=== PATIENT | female | born 1950 | race African-American/Black ===

== ENCOUNTER → 2016-09-02 | Outpatient (CLI) | payer OTHER, MEDICAID ==
[2013-04-16 18:09] VITALS: BP 120/71
[2016-09-02 11:04] LABS: HEMOGLOBIN A1C 6.3 % (4.5-6.2)
[2016-09-02 11:13] LABS: BLOOD UREA NITROGEN 15 mg/dL (7-18); CHLORIDE 109 mmol/L (98-107); CREATININE 1.35 mg/dL (0.55-1.02); GLUCOSE 110 mg/dL (65-99); SODIUM 146 mmol/L (136-145); T4 (THYROXINE) 7.4 ug/dL (4.7-13.3); TSH (3RD GENERATION) 0.741 uIU/mL (0.358-3.74); eGFR BLACK RACES 50 (>60); eGFR NON BLACK RACES 42 (>60)
[2016-09-02 11:28] LABS: B-TYPE NATRIURETIC PEPTIDE 145 pg/mL (0-79)
[2016-09-02 17:57] LABS: CREATININE,URINE 322.18 mg/dL (29-226)
== END ==
LOC: LAB 10:11
PROVIDERS: ATTEND Nurse Practitioner Family
DX: I25.10 Atherosclerotic heart disease of native coronary artery without angina pectoris (principal); I11.0 Hypertensive heart disease with heart failure; N18.3 Chronic kidney disease, stage 3 (moderate); E72.11 Homocystinuria; E78.4 Other hyperlipidemia; E11.9 Type 2 diabetes mellitus without complications
CPT/HCPCS: 36415; 80048; 82043; 82607; 82746; 83036; 83880; 84436; 84443

== ENCOUNTER → 2016-09-08 | Outpatient (CLI) | payer OTHER, MEDICAID ==
[2013-04-16 18:09] VITALS: BP 120/71
== END ==
LOC: RAD 14:40
PROVIDERS: ATTEND Internal Medicine Cardiovascular Disease
DX: I48.91 Unspecified atrial fibrillation (principal)
CPT/HCPCS: 93306

== ENCOUNTER → 2016-09-10 | Outpatient (CLI) | payer OTHER, MEDICAID ==
[2013-04-16 18:09] VITALS: BP 120/71
[2016-09-10 14:22] LABS: BASOPHILS % (AUTO) 0.9 % (0.2-1.0); EOSINOPHILS # (AUTO) 0.1 x10^3/uL (0.0-0.2); EOSINOPHILS % (AUTO) 1.4 % (0.9-2.9); HEMATOCRIT 40.4 % (36.0-47.0); HEMOGLOBIN 13.3 g/dL (12.0-16.0); LYMPHOCYTES # (AUTO) 2.4 X10^3/uL (1.3-2.9); LYMPHOCYTES % (AUTO) 50.1 % (21.0-51.0); MEAN CORPUSCULAR HEMOGLOBIN 28.6 pg (27.0-34.0); MEAN CORPUSCULAR HGB CONC 32.8 g/dL (33.0-35.0); MEAN CORPUSCULAR VOLUME 87.1 fL (80.0-100.0); MEAN PLATELET VOLUME 10.1 fL (7.4-11.0); MONOCYTES # (AUTO) 0.4 x10^3/uL (0.3-0.8); MONOCYTES % (AUTO) 7.5 % (0.0-13.0); NEUTROPHILS % (AUTO) 40.1 % (42.0-75.0); PLATELET COUNT 238 X10^3/uL (150.0-450.0); RED BLOOD COUNT 4.64 X10^6/uL (3.5-5.4); WHITE BLOOD COUNT 4.9 X10^3/uL (3.6-10.0)
[2016-09-10 14:24] LABS: ALANINE AMINOTRANSFERASE 18 Units/L (12-78); ALBUMIN 3.7 g/dL (3.4-5.0); ALKALINE PHOSPHATASE 65 Units/L (46-116); ASPARTATE AMINO TRANSFERASE 15 Units/L (15-37); BLOOD UREA NITROGEN 17 mg/dL (7-18); CALCIUM 9.1 mg/dL (8.5-10.1); CARBON DIOXIDE 27.1 mmol/L (21-32); CHLORIDE 106 mmol/L (98-107); CHOL/HDL RATIO 2.3 (0.0-5.0); CHOLESTEROL 123 mg/dL (0-200); CREATININE 1.76 mg/dL (0.55-1.02); GLUCOSE 93 mg/dL (65-99); HDL CHOLESTEROL 54 mg/dL (40-60); SODIUM 144 mmol/L (136-145); TOTAL PROTEIN 8.1 g/dL (6.4-8.2); TRIGLYCERIDES 68 mg/dL (0-150); URIC ACID 8.6 mg/dL (2.6-6.0); eGFR BLACK RACES 37 (>60); eGFR NON BLACK RACES 31 (>60)
[2016-09-13 10:22] LABS: PHOSPHORUS 3.9 mg/dL (2.6-4.7)
[2016-09-13 10:24] LABS: HEMOGLOBIN A1C 6.1 % (4.5-6.2)
== END ==
LOC: LAB 13:43
PROVIDERS: ATTEND Internal Medicine
DX: I12.9 Hypertensive chronic kidney disease with stage 1 through stage 4 chronic kidney disease, or unspecified chronic kidney disease (principal); N18.3 Chronic kidney disease, stage 3 (moderate); E11.9 Type 2 diabetes mellitus without complications; I48.91 Unspecified atrial fibrillation
CPT/HCPCS: 36415; 80053; 80061; 83036; 84100; 84550; 85025

== ENCOUNTER → 2016-09-20 | Outpatient (CLI) | payer OTHER, MEDICAID ==
[2013-04-16 18:09] VITALS: BP 120/71
== END ==
LOC: RAD 08:55
PROVIDERS: ATTEND Physician Assistant
DX: I48.91 Unspecified atrial fibrillation (principal); I25.10 Atherosclerotic heart disease of native coronary artery without angina pectoris
CPT/HCPCS: 78452; 93017; A9502

== ENCOUNTER → 2016-11-23 | Outpatient (CLI) | payer OTHER, MEDICAID ==
[2013-04-16 18:09] VITALS: BP 120/71
--- NOTE | 2016-11-24 09:15 | MG ---
HISTORY: SCREENING Comparison: 09/11/2015 FINDINGS: Bilateral CC and MLO projections of the right and left breast were obtained. Scattered fibroglandul ar tissue is seen to be present. No significant architectural distortion, mass or clustered microca lcifications can be observed to suggest malignancy. No skin thickening or nipple retraction is appr eciated. No pathological lymphadenopathy can be identified. IMPRESSION: NO RADIOGRAPHIC EVIDENCE OF MALIGNANCY. ACR CATEGORY I - NEGATIVE EXAM. FOLLOW-UP EXAM 1 YEAR. Diagnostic CAD was utilized and reviewed. * 0 (ZERO) - ASSESSMENT INCOMPLETE; ADDITIONAL IMAGING IS NEEDED. * 1/ (ONE) - NEGATIVE. * 2/II (TWO) - BENIGN FINDINGS. * 3/III (THREE) - PROBABLY BENIGN FINDING; SHORT INTERVAL FOLLOW-UP SUGGESTED. * 4/IV (FOUR) - SUSPICIOUS ABNORMALITY; BIOPSY SHOULD BE CONSIDERED. * 5/V - HIGHLY SUSPICIOUS OF MALIGNANCY; BIOPSY SHOULD BE PERFORMED. A NEGATIVE X-RAY REPORT SHOULD NOT DELAY BIOPSY IF A DOMINANT OR CLINICALLY SUSPICIOUS MASS IS PRESENT; 4 TO 8 PERCENT OF CANCERS ARE NOT IDENTIFIED BY X-RAY. A NEG ATIVE REPORT MAY REINFORCE THE CLINICAL IMPRESSION. ADENOSIS AND DENSE BREASTS MAY OBSCURE AN UNDER LYING NEOPLASM. Reported By:
== END ==
LOC: RAD 10:15
PROVIDERS: ATTEND Nurse Practitioner Family
DX: Z12.31 Encounter for screening mammogram for malignant neoplasm of breast (principal)
CPT/HCPCS: 77067

== ENCOUNTER → 2016-12-30 | Outpatient (CLI) | payer OTHER, MEDICAID ==
[2013-04-16 18:09] VITALS: BP 120/71
[2016-12-30 11:56] LABS: BASOPHILS # (AUTO) 0.1 X10^3/uL (0.0-0.1); BASOPHILS % (AUTO) 1.1 % (0.2-1.0); EOSINOPHILS # (AUTO) 0.1 x10^3/uL (0.0-0.2); EOSINOPHILS % (AUTO) 1.6 % (0.9-2.9); HEMATOCRIT 37.2 % (36.0-47.0); HEMOGLOBIN 12.2 g/dL (12.0-16.0); LYMPHOCYTES # (AUTO) 2.4 X10^3/uL (1.3-2.9); LYMPHOCYTES % (AUTO) 45.7 % (21.0-51.0); MEAN CORPUSCULAR HEMOGLOBIN 28.9 pg (27.0-34.0); MEAN CORPUSCULAR HGB CONC 32.8 g/dL (33.0-35.0); MONOCYTES # (AUTO) 0.4 x10^3/uL (0.3-0.8); MONOCYTES % (AUTO) 8.1 % (0.0-13.0); NEUTROPHILS # (AUTO) 2.3 x10^3/uL (2.2-4.8); NEUTROPHILS % (AUTO) 43.5 % (42.0-75.0); PLATELET COUNT 228 X10^3/uL (150.0-450.0); RED BLOOD COUNT 4.22 X10^6/uL (3.5-5.4); RED CELL DISTRIBUTION WIDTH 13.5 % (11.6-16.5); WHITE BLOOD COUNT 5.2 X10^3/uL (3.6-10.0)
[2016-12-30 12:03] LABS: HEMOGLOBIN A1C 6.5 % (4.5-6.2)
[2016-12-30 12:12] LABS: CREATININE,URINE 151.74 mg/dL (29-226); MICROALBUMIN,URINE 3.1 mg/L
[2016-12-30 12:29] LABS: ALANINE AMINOTRANSFERASE 46 Units/L (12-78); ALBUMIN 3.5 g/dL (3.4-5.0); ALKALINE PHOSPHATASE 56 Units/L (46-116); ASPARTATE AMINO TRANSFERASE 25 Units/L (15-37); BLOOD UREA NITROGEN 25 mg/dL (7-18); CALCIUM 8.8 mg/dL (8.5-10.1); CHLORIDE 106 mmol/L (98-107); CHOL/HDL RATIO 2.1 (0.0-5.0); CHOLESTEROL 118 mg/dL (0-200); CREATININE 1.78 mg/dL (0.55-1.02); GLUCOSE 97 mg/dL (65-99); HDL CHOLESTEROL 56 mg/dL (40-60); PHOSPHORUS 3.8 mg/dL (2.6-4.7); SODIUM 140 mmol/L (136-145); T4 (THYROXINE) 7.7 ug/dL (4.7-13.3); TOTAL PROTEIN 7.6 g/dL (6.4-8.2); TRIGLYCERIDES 70 mg/dL (0-150); TSH (3RD GENERATION) 0.788 uIU/mL (0.358-3.74); eGFR BLACK RACES 36 (>60); eGFR NON BLACK RACES 30 (>60)
== END ==
LOC: LAB 11:33
PROVIDERS: ATTEND Nurse Practitioner Family
DX: E78.4 Other hyperlipidemia (principal); R00.1 Bradycardia, unspecified; E11.8 Type 2 diabetes mellitus with unspecified complications; I48.91 Unspecified atrial fibrillation; I12.9 Hypertensive chronic kidney disease with stage 1 through stage 4 chronic kidney disease, or unspecified chronic kidney disease; N18.3 Chronic kidney disease, stage 3 (moderate)
CPT/HCPCS: 36415; 80053; 80061; 82043; 83036; 84100; 84436; 84443; 85025

== ENCOUNTER → 2017-02-07 | Outpatient (CLI) | payer OTHER, MEDICAID ==
[2013-04-16 18:09] VITALS: BP 120/71
[2017-02-07 10:49] LABS: BASOPHILS # (AUTO) 0.1 X10^3/uL (0.0-0.1); BASOPHILS % (AUTO) 0.9 % (0.2-1.0); EOSINOPHILS # (AUTO) 0.1 x10^3/uL (0.0-0.2); EOSINOPHILS % (AUTO) 1.2 % (0.9-2.9); HEMATOCRIT 37.3 % (36.0-47.0); HEMOGLOBIN 12.3 g/dL (12.0-16.0); LYMPHOCYTES # (AUTO) 2.8 X10^3/uL (1.3-2.9); LYMPHOCYTES % (AUTO) 47.1 % (21.0-51.0); MEAN CORPUSCULAR VOLUME 87.9 fL (80.0-100.0); MEAN PLATELET VOLUME 10.5 fL (7.4-11.0); MONOCYTES # (AUTO) 0.4 x10^3/uL (0.3-0.8); MONOCYTES % (AUTO) 7.5 % (0.0-13.0); NEUTROPHILS # (AUTO) 2.6 x10^3/uL (2.2-4.8); NEUTROPHILS % (AUTO) 43.3 % (42.0-75.0); PLATELET COUNT 214 X10^3/uL (150.0-450.0); RED BLOOD COUNT 4.24 X10^6/uL (3.5-5.4); RED CELL DISTRIBUTION WIDTH 13.7 % (11.6-16.5)
[2017-02-07 10:52] LABS: ALBUMIN 3.3 g/dL (3.4-5.0); BLOOD UREA NITROGEN 11 mg/dL (7-18); CALCIUM 9.4 mg/dL (8.5-10.1); CARBON DIOXIDE 28.9 mmol/L (21-32); CHLORIDE 108 mmol/L (98-107); CHOL/HDL RATIO 1.9 (0.0-5.0); CHOLESTEROL 112 mg/dL (0-200); CREATININE 1.47 mg/dL (0.55-1.02); GLUCOSE 99 mg/dL (65-99); HDL CHOLESTEROL 60 mg/dL (40-60); PHOSPHORUS 3.4 mg/dL (2.6-4.7); SODIUM 143 mmol/L (136-145); TRIGLYCERIDES 51 mg/dL (0-150); eGFR BLACK RACES 45 (>60); eGFR NON BLACK RACES 38 (>60)
[2017-02-07 12:54] LABS: URIC ACID 6.6 mg/dL (2.6-6.0)
--- NOTE | 2017-02-07 15:00 | MRI ---
HISTORY: Chronic lumbar radiculopathy, low back pain Study: MRI lumbar spine without contrast Comparison: 05/01/2013 Technique: Multiplanar multi-sequence MRI of the lumbar spine was obtained. Sagittal T1, sagittal T2 , and stir weighted images, axial T1, and axial T2 images were obtained. Findings: There is grade 1 anterolisthesis of L5 on S1, alignment is otherwise normal. No abnormal cord or jaxson ow signal identified. The conus of the cord terminates normally. The surrounding soft tissues are w ithin normal limits. Vertebral body heights are preserved. There is diffuse multilevel disc desiccati on and spondylosis. T12 -- L1: No significant stenosis identified. L1 -- L2: Mild facet degenerative changes without significant stenosis. L2 -- L3: Mild to moderate facet degenerative changes without significant stenosis. L3 -- L4: Moderate to severe facet hypertrophic changes, ligamentum thickening and a broad-based disc bulge are seen at this level contributing to moderate spinal canal stenosis and bilateral foraminal stenosis, moderate on the right and moderate to severe on the left. L4 -- L5: Moderate to severe facet hypertrophic changes, ligamentum thickening and broad-based disc b ulge are seen at this level causing moderate spinal canal stenosis and severe bilateral foraminal gustavo nosis. L5 -- S1: There is mild to moderate spinal canal stenosis due to facet degenerative changes, disc bul ging and anterolisthesis of L5 on S1. There is severe bilateral foraminal stenosis. IMPRESSION: 1. Multilevel foraminal stenosis as detailed above most severe bilaterally at L4-5 and L5-S1. 2. Moderate spinal canal stenosis at L3-L4 and L4-5. Mild to moderate spinal canal stenosis at L5-S1. 3. Multilevel facet arthropathy with grade 1 anterolisthesis of L5 on S1. Reported By:
== END | disposition home or self-care (01) | DRG 552 ==
LOC: RAD 10:08
PROVIDERS: ATTEND Psychiatry & Neurology Neurology
DX: M54.16 Radiculopathy, lumbar region (principal); I12.9 Hypertensive chronic kidney disease with stage 1 through stage 4 chronic kidney disease, or unspecified chronic kidney disease; N18.3 Chronic kidney disease, stage 3 (moderate); E11.8 Type 2 diabetes mellitus with unspecified complications; M48.07 Spinal stenosis, lumbosacral region; M12.88 Other specific arthropathies, not elsewhere classified, other specified site
CPT/HCPCS: 36415; 72148; 80061; 80069; 83036; 84550; 85025

== ENCOUNTER → 2017-05-06 | Outpatient (CLI) | payer OTHER, MEDICAID ==
[2013-04-16 18:09] VITALS: BP 120/71
[2017-05-06 11:12] LABS: BASOPHILS # (AUTO) 0.1 X10^3/uL (0.0-0.1); BASOPHILS % (AUTO) 0.7 % (0.2-1.0); EOSINOPHILS % (AUTO) 0.5 % (0.9-2.9); HEMATOCRIT 36.9 % (36.0-47.0); HEMOGLOBIN 12.1 g/dL (12.0-16.0); LYMPHOCYTES # (AUTO) 2.6 X10^3/uL (1.3-2.9); LYMPHOCYTES % (AUTO) 34.3 % (21.0-51.0); MEAN CORPUSCULAR HEMOGLOBIN 28.8 pg (27.0-34.0); MEAN CORPUSCULAR HGB CONC 32.8 g/dL (33.0-35.0); MEAN CORPUSCULAR VOLUME 87.6 fL (80.0-100.0); MEAN PLATELET VOLUME 10.3 fL (7.4-11.0); MONOCYTES # (AUTO) 0.5 x10^3/uL (0.3-0.8); NEUTROPHILS # (AUTO) 4.4 x10^3/uL (2.2-4.8); NEUTROPHILS % (AUTO) 58.5 % (42.0-75.0); PLATELET COUNT 218 X10^3/uL (150.0-450.0); RED BLOOD COUNT 4.22 X10^6/uL (3.5-5.4); RED CELL DISTRIBUTION WIDTH 14.4 % (11.6-16.5); WHITE BLOOD COUNT 7.6 X10^3/uL (3.6-10.0)
[2017-05-06 11:22] LABS: HEMOGLOBIN A1C 6.1 % (4.5-6.2)
[2017-05-06 11:27] LABS: CREATININE,URINE 190.33 mg/dL (29-226); MICROALBUMIN,URINE 9.1 mg/L
[2017-05-06 11:28] LABS: ALANINE AMINOTRANSFERASE 24 Units/L (12-78); ALBUMIN 3.3 g/dL (3.4-5.0); ALKALINE PHOSPHATASE 69 Units/L (46-116); ASPARTATE AMINO TRANSFERASE 20 Units/L (15-37); BLOOD UREA NITROGEN 16 mg/dL (7-18); CALCIUM 8.9 mg/dL (8.5-10.1); CARBON DIOXIDE 24.6 mmol/L (21-32); CHLORIDE 107 mmol/L (98-107); CHOL/HDL RATIO 1.8 (0.0-5.0); CHOLESTEROL 128 mg/dL (0-200); COR CA(FOR HYPOALB) 9.5 mg/dL (8.5-10.1); CREATININE 1.37 mg/dL (0.55-1.02); HDL CHOLESTEROL 70 mg/dL (40-60); SODIUM 143 mmol/L (136-145); TOTAL PROTEIN 7.5 g/dL (6.4-8.2); TRIGLYCERIDES 32 mg/dL (0-150); eGFR BLACK RACES 49 (>60); eGFR NON BLACK RACES 41 (>60)
--- NOTE | 2017-05-06 11:51 | RAD ---
Examination: Right knee, three views History: Pain, no trauma Findings: There is mild degenerative narrowing involving the patellar-femoral and medial compartments . Medial osteophyte formation is present. There is no fracture, dislocation or synovial effusion. Impression: Osteoarthritis with distribution as noted. No acute features identified. Reported By:
[2017-05-06 11:54] LABS: ERYTHROCYTE SEDIMENTATION RATE 46 MM/HOUR (0-20)
== END ==
LOC: LAB 10:42
PROVIDERS: ATTEND Nurse Practitioner Family
DX: M17.0 Bilateral primary osteoarthritis of knee (principal); E11.9 Type 2 diabetes mellitus without complications; E78.4 Other hyperlipidemia
CPT/HCPCS: 36415; 73560; 80053; 80061; 82043; 83036; 85025; 85652; 86140

== ENCOUNTER 2017-05-12 07:11 | Day surgery (SDC) | payer OTHER, MEDICAID ==
[2017-05-12] MEDS ORDERED: D5 LR 1000 ML 1,000 ML IV ONE (07:23)
[2017-05-12] MEDS ORDERED: LR 1000 ML IV 1,000 ML IV ONE (07:40)
[2017-05-12] MEDS ORDERED: NS 1000 ML 1,000 ML ONE (07:41)
[2017-05-12] MEDS ORDERED: DIPRIVAN VIAL 20 ML ONE ×2 (08:58→09:15)
[2017-05-12 09:38] VITALS: BP 131/71
== END 2017-05-12 09:40 | disposition home or self-care (01) ==
LOC: SURG1 07:11
PROVIDERS: ATTEND Internal Medicine Gastroenterology
PROC: 0DBE8ZX Excision of Large Intestine, Via Natural or Artificial Opening Endoscopic, Diagnostic (ICD-10-PCS; principal; 2017-05-12 08:30)
PROC: 0DJD8ZZ Inspection of Lower Intestinal Tract, Via Natural or Artificial Opening Endoscopic (ICD-10-PCS; principal; 2017-05-12 08:30)
DX: R19.4 Change in bowel habit (principal); K57.30 Diverticulosis of large intestine without perforation or abscess without bleeding; K64.0 First degree hemorrhoids; Z80.0 Family history of malignant neoplasm of digestive organs
CPT/HCPCS: A4217; J3490; J7120

== ENCOUNTER → 2017-08-11 | Outpatient (CLI) | payer OTHER, MEDICAID ==
[~2017-08-11] MED LIST: LEXISCAN IV ONE
== END ==
LOC: RAD 09:18
PROVIDERS: ATTEND Internal Medicine Cardiovascular Disease
DX: R55 Syncope and collapse (principal)
CPT/HCPCS: 78452; 93017; A4222; A9502; J2785

== ENCOUNTER → 2017-08-21 | Outpatient (CLI) | payer OTHER, MEDICAID ==
[2017-08-21 17:56] LABS: BASOPHILS # (AUTO) 0.1 X10^3/uL (0.0-0.1); BASOPHILS % (AUTO) 0.8 % (0.2-1.0); EOSINOPHILS # (AUTO) 0.1 x10^3/uL (0.0-0.2); EOSINOPHILS % (AUTO) 1.3 % (0.9-2.9); HEMATOCRIT 37.8 % (36.0-47.0); HEMOGLOBIN 12.3 g/dL (12.0-16.0); LYMPHOCYTES # (AUTO) 2.8 X10^3/uL (1.3-2.9); MEAN CORPUSCULAR HEMOGLOBIN 28.6 pg (27.0-34.0); MEAN CORPUSCULAR HGB CONC 32.6 g/dL (33.0-35.0); MEAN CORPUSCULAR VOLUME 87.7 fL (80.0-100.0); MEAN PLATELET VOLUME 10.2 fL (7.4-11.0); MONOCYTES # (AUTO) 0.6 x10^3/uL (0.3-0.8); MONOCYTES % (AUTO) 8.9 % (0.0-13.0); NEUTROPHILS # (AUTO) 3.4 x10^3/uL (2.2-4.8); PLATELET COUNT 233 X10^3/uL (150.0-450.0); RED BLOOD COUNT 4.31 X10^6/uL (3.5-5.4); RED CELL DISTRIBUTION WIDTH 14.3 % (11.6-16.5)
[2017-08-21 17:58] LABS: HEMOGLOBIN A1C 5.8 %
[2017-08-21 18:13] LABS: ALANINE AMINOTRANSFERASE 30 Units/L (12-78); ALBUMIN 3.6 g/dL (3.4-5.0); ALKALINE PHOSPHATASE 69 Units/L (46-116); ASPARTATE AMINO TRANSFERASE 20 Units/L (15-37); BLOOD UREA NITROGEN 24 mg/dL (7-18); CALCIUM 8.7 mg/dL (8.5-10.1); CARBON DIOXIDE 27.4 mmol/L (21-32); CHLORIDE 103 mmol/L (98-107); COR NA(FOR HYPERGLY) 140 mmol/L (136-145); CREATININE 1.67 mg/dL (0.55-1.02); PHOSPHORUS 3.6 mg/dL (2.6-4.7); SODIUM 140 mmol/L (136-145); TOTAL PROTEIN 8.1 g/dL (6.4-8.2); eGFR BLACK RACES 39 (>60); eGFR NON BLACK RACES 32 (>60)
[2017-08-21 18:21] LABS: CREATININE,URINE 131.78 mg/dL (29-226); MICROALBUMIN,URINE 5.1 mg/L
== END ==
LOC: LAB 17:13
PROVIDERS: ATTEND Internal Medicine
DX: I12.9 Hypertensive chronic kidney disease with stage 1 through stage 4 chronic kidney disease, or unspecified chronic kidney disease (principal); N18.3 Chronic kidney disease, stage 3 (moderate); E11.22 Type 2 diabetes mellitus with diabetic chronic kidney disease
CPT/HCPCS: 36415; 80053; 82043; 83036; 84100; 84550; 85025

== ENCOUNTER → 2017-08-24 | Outpatient (CLI) | payer OTHER, MEDICAID | LOC: RAD 14:01 | PROVIDERS: ATTEND Internal Medicine Cardiovascular Disease | DX: R00.2 Palpitations (principal) | CPT/HCPCS: 93306 ==

== ENCOUNTER → 2017-08-30 | Outpatient (CLI) | payer OTHER, MEDICAID ==
--- NOTE | 2017-08-31 14:11 | MRI ---
History: Primary osteoarthritis. Right wrist pain. Technique: Multiplanar, multi sequence MR imaging of the right wrist was performed without IV contras t. Comparison:NONE Findings: There is severe osteoarthrosis of the 1st carpometacarpal articulation, with associated synovitis and thickening of the joint capsule, and 3 mm radial subluxation of the 1st metacarpal. There is moderat e to severe triscaphe osteoarthrosis. There is bone marrow edema involving the ulnar half of the [place] te, with cystic change. There is grade 2/grade 3 chondral loss along the radial aspect of the radiolu lamont articulation. Grade 2 chondral loss is noted along the lunate. There is a type 2 lunate facet, with mild degenerative changes at the hamatolunate articulation sugge sting hamatolunate impaction. Subtle edema is suggested within the proximal pole of the hamate. The articular disc of the triangular fibrocartilage complex demonstrates some internal degenerative s ignal however no focal tear is seen. The dorsal and volar radioulnar ligaments are intact. New extensor tendons appear intact without significant tendinosis or tenosynovitis. The components of the carpal tunnel appear within normal limits. The scapholunate and the lunotriquetral ligaments cecilia ear grossly intact. Carpal bones appear aligned. Impression: 1. Bone marrow edema and cystic change within the ulnar half of the lunate, with grade 2/grade 3 radi olunate chondromalacia and osteoarthritic change. This pattern of lunate involvement can be seen in t he setting of ulnocarpal abutment syndrome. Clinical correlation is required. Kienbock's disease is a consideration although felt less likely as it typically involves the lunate diffusely. 2. Severe osteoarthrosis of the 1st carpometacarpal articulation with joint capsular thickening and s ynovitis, and slight radial subluxation of the 1st metacarpal. [id number] triscaphe osteoarth rosis is also noted. Reported By:
== END ==
LOC: RAD 13:20
PROVIDERS: ATTEND Psychiatry & Neurology Neurology
DX: M19.031 Primary osteoarthritis, right wrist (principal)
CPT/HCPCS: 73221

== ENCOUNTER → 2017-09-30 | Outpatient (CLI) | payer OTHER, MEDICAID ==
[2017-09-30 12:05] LABS: BASOPHILS # (AUTO) 0.1 X10^3/uL (0.0-0.1); BASOPHILS % (AUTO) 0.9 % (0.2-1.0); EOSINOPHILS # (AUTO) 0.1 x10^3/uL (0.0-0.2); EOSINOPHILS % (AUTO) 1.7 % (0.9-2.9); HEMATOCRIT 38.3 % (36.0-47.0); HEMOGLOBIN 12.6 g/dL (12.0-16.0); MEAN CORPUSCULAR HEMOGLOBIN 28.6 pg (27.0-34.0); MEAN CORPUSCULAR HGB CONC 32.8 g/dL (33.0-35.0); MEAN CORPUSCULAR VOLUME 87.1 fL (80.0-100.0); MEAN PLATELET VOLUME 9.9 fL (7.4-11.0); MONOCYTES # (AUTO) 0.5 x10^3/uL (0.3-0.8); MONOCYTES % (AUTO) 6.9 % (0.0-13.0); NEUTROPHILS # (AUTO) 2.9 x10^3/uL (2.2-4.8); NEUTROPHILS % (AUTO) 44.5 % (42.0-75.0); PLATELET COUNT 242 X10^3/uL (150.0-450.0); RED CELL DISTRIBUTION WIDTH 13.9 % (11.6-16.5); WHITE BLOOD COUNT 6.6 X10^3/uL (3.6-10.0)
[2017-09-30 12:13] LABS: HEMOGLOBIN A1C 5.5 %
[2017-09-30 12:15] LABS: ALBUMIN 3.7 g/dL (3.4-5.0); BLOOD UREA NITROGEN 19 mg/dL (7-18); CALCIUM 9.1 mg/dL (8.5-10.1); CARBON DIOXIDE 26.1 mmol/L (21-32); CHLORIDE 103 mmol/L (98-107); CHOLESTEROL 122 mg/dL (0-200); CREATININE 1.69 mg/dL (0.55-1.02); HDL CHOLESTEROL 61 mg/dL (40-60); PHOSPHORUS 3.7 mg/dL (2.6-4.7); SODIUM 139 mmol/L (136-145); TRIGLYCERIDES 52 mg/dL (0-150); URIC ACID 7.1 mg/dL (2.6-6.0); eGFR BLACK RACES 39 (>60); eGFR NON BLACK RACES 32 (>60)
== END ==
LOC: LAB 11:43
PROVIDERS: ATTEND Internal Medicine
DX: I12.9 Hypertensive chronic kidney disease with stage 1 through stage 4 chronic kidney disease, or unspecified chronic kidney disease (principal); N18.3 Chronic kidney disease, stage 3 (moderate); E11.29 Type 2 diabetes mellitus with other diabetic kidney complication
CPT/HCPCS: 36415; 80061; 80069; 83036; 84550; 85025

== ENCOUNTER 2020-11-21 08:45 | Inpatient (IN) ==
--- NOTE | 2020-11-21 09:22 | DR.GENAD ---
HPI Time Seen Time Seen by Provider: 11/21/20 09:19 PCP Primary Care Physician: Dr. Mckenzie Complaint/Symptoms Chief Complaint Doctors Comments: BLOOD IN STOOL NOTED THIS AM. Chief Complaint:: Pt c/o two episodes of blood in stool this am. She states the blood is bright red. Pt denies abd pain. COVID-19 Coronavirus risk:travel/contact w/high risk person: No Has patient experienced Coronavirus symptoms: No Nurses notes reviewed Nurses Notes Review: Yes Source History Provided: Patient Mode of Arrival Mode of Arrival: Wheelchair Timing Onset of Chief Complaint: 11/21/20 Came on: Suddenly Duration Duration: Hours Severity Severity: Moderate PMH PMH Past Medical History: Yes Past Medical History: COPD, Diabetes and Hypertension Past Surgical History: Yes Surgical History: Hysterectomy and Ortho Surgery Family History History of Family Medical Conditions: Yes Family Medical History: Diabetes Mellitus and Hypertension Social History Does patient currently use any type of tobacco product: No Have you used tobacco products in the last 12 months: No Type of Tobacco Use: None Does any household member use tobacco: No Alcohol Use: None Do you use any recreational Drugs:: No Lives With: Family Lives Where: Home Travel Risk Coronavirus risk:travel/contact w/high risk person: No Has patient experienced Coronavirus symptoms: No Infectious screening In the last 2 months have you had wt loss of >10#?: NO Have you had fever, night sweats or hemotysis?: No Have you traveled outside the country in the last 6 months?: No Isolation: Standard ROS Review of Systems Constitutional: No Symptoms Reported and See HPI Eyes: No Symptoms Reported and See HPI ENTM: No Symptoms Reported and See HPI Respiratoy: No Symptoms Reported and See HPI Cardiovascular: No Symptoms Reported and See HPI Gastrointestinal/Abdominal: No Symptoms Reported and See HPI Genitourinary: No Symptoms Reported and See HPI Neurological: No Symptoms Reported and See HPI Musculoskeletal: No Symptoms Reported and See HPI Integumentary: No Symptoms Reported and See HPI Hematologic/Lymphatic: No Symptoms Reported and See HPI Endocrine: No Symptoms Reported and See HPI Psychiatric: No Symptoms Reported and See HPI All Other Systems: Reviewed and Negative PE Vital Signs Vitals: Temperature 98.3 F Pulse Rate [Left Radial] 77 Pulse Rate 75 Respiratory Rate 18 Blood Pressure [Left Arm] 152/90 Blood Pressure 147/82 O2 Sat by Pulse Oximetry 98 General Limitations: No Limitations General Appearance: Alert and In No Apparent Distress Head Head Exam: Normal Inspection Eyes Eye exam: Normal Appearance ENT ENT Exam: Normal Exam External Ear Exam: Normal External Inspection TM/Canal Exam: Bilateral: Normal Nose Exam: Normal Nose Exam Mouth Exam: Normal Inspection Throat Exam: Normal Inspection Neck Neck Exam: Normal Inspection Chest Chest Inspection: Normal Inspection Respiratory Respiratory Exam: Normal Lung Sounds Bilat Respiratory Exam: Bilateral: Clear to Auscultation Cardiovascular Cardiovascular Exam: Regular Rate and Normal Rhythm Abdominal Exam Abdominal Exam: Normal Inspection, Normal Bowel Sounds and Soft Extremities Extremities Exam: Normal Inspection Back Back Exam: Normal Inspection Neurologic Neurological Exam: Alert and Oriented X3 Psychiatric Psychiatric Exam: Normal Affect and Normal Mood Skin Skin Exam: Warm, Dry, Intact and Normal Color MDM Differential Diagnosis Differential Diagnosis: GI BLEEDING. ROR Labs Reviewed Result Diagrams: 11/21/20 09:40 11/21/20 09:40 Laboratory: WBC 4.8 X10^3/uL (3.6-10.0) 11/21/20 09:40 RBC 4.00 X10^6/uL (3.5-5.4) 11/21/20 09:40 Hgb 11.2 g/dL (12.0-16.0) L 11/21/20 09:40 Hct 34.9 % (36.0-47.0) L 11/21/20 09:40 MCV 87.2 fL (80.0-100.0) 11/21/20 09:40 MCH 28.1 pg (27.0-34.0) 11/21/20 09:40 MCHC 32.2 g/dL (33.0-35.0) L 11/21/20 09:40 RDW 15.1 % (11.6-16.5) 11/21/20 09:40 Plt Count 244 X10^3/uL (150.0-450.0) 11/21/20 09:40 MPV 9.6 fL (7.4-11.0) 11/21/20 09:40 Neut % (Auto) 37.8 % (42.0-75.0) L 11/21/20 09:40 Lymph % (Auto) 51.9 % (21.0-51.0) H 11/21/20 09:40 [place] % (Auto) 7.4 % (0.0-13.0) 11/21/20 09:40 Eos % (Auto) 1.8 % (0.9-2.9) 11/21/20 09:40 Baso % (Auto) 1.1 % (0.2-1.0) H 11/21/20 09:40 Neut # (Auto) 1.8 x10^3/uL (2.2-4.8) L 11/21/20 09:40 Lymph # (Auto) 2.5 X10^3/uL (1.3-2.9) 11/21/20 09:40 [place] # (Auto) 0.4 x10^3/uL (0.3-0.8) 11/21/20 09:40 Eos # (Auto) 0.1 x10^3/uL (0.0-0.2) 11/21/20 09:40 Baso # (Auto) 0.1 X10^3/uL (0.0-0.1) 11/21/20 09:40 Absolute Nucleated RBC 0.0 /100WBC 11/21/20 09:40 Sodium 146 mmol/L (136-145) H 11/21/20 09:40 Corrected Sodium 147 mmol/L (136-145) H 11/21/20 09:40 Potassium 4.3 mmol/L (3.5-5.1) 11/21/20 09:40 Chloride 108 mmol/L (98-107) H 11/21/20 09:40 Carbon Dioxide 26.2 mmol/L (21-32) 11/21/20 09:40 BUN 18 mg/dL (7-18) 11/21/20 09:40 Creatinine 1.24 mg/dL (0.55-1.02) H 11/21/20 09:40 Est GFR (MDRD) Af Amer 55 (>60) L 11/21/20 09:40 Est GFR (MDRD) Non-Af 45 (>60) L 11/21/20 09:40 Glucose 136 mg/dL (65-99) H 11/21/20 09:40 Calcium 8.8 mg/dL (8.5-10.1) 11/21/20 09:40 Corrected Calcium 9.6 mg/dL (8.5-10.1) 11/21/20 09:40 Total Bilirubin 0.30 mg/dL (0.2-1.0) 11/21/20 09:40 AST 17 Units/L (15-37) 11/21/20 09:40 ALT 16 Units/L (12-78) 11/21/20 09:40 Alkaline Phosphatase 72 Units/L (46-116) 11/21/20 09:40 Total Protein 6.6 g/dL (6.4-8.2) 11/21/20 09:40 Albumin 3.0 g/dL (3.4-5.0) L 11/21/20 09:40 Globulin 3.6 g/dL (2.5-4.5) 11/21/20 09:40 Albumin/Globulin Ratio 0.8 Ratio (1.1-2.1) L 11/21/20 09:40 Stool Description 30g grossly bloody 11/21/20 11:05 Stl Occult Blood (IFOB) Positive (NEGATIVE) A 11/21/20 11:05 Opioid Opioid Risk Tool Age (Mitchell box if 16-45): No History of Preadolescent Sexual Abuse: No Total: 0 Total Score Risk Category: Low Risk Copyright: Florencio CARRILLO predicting aberrant behaviors
[2020-11-21 09:45] LABS: BASOPHILS # (AUTO) 0.1 X10^3/uL (0.0-0.1); BASOPHILS % (AUTO) 1.1 % (0.2-1.0); EOSINOPHILS # (AUTO) 0.1 x10^3/uL (0.0-0.2); EOSINOPHILS % (AUTO) 1.8 % (0.9-2.9); HEMATOCRIT 34.9 % (36.0-47.0); HEMOGLOBIN 11.2 g/dL (12.0-16.0); LYMPHOCYTES # (AUTO) 2.5 X10^3/uL (1.3-2.9); LYMPHOCYTES % (AUTO) 51.9 % (21.0-51.0); MEAN CORPUSCULAR HEMOGLOBIN 28.1 pg (27.0-34.0); MEAN CORPUSCULAR HGB CONC 32.2 g/dL (33.0-35.0); MEAN CORPUSCULAR VOLUME 87.2 fL (80.0-100.0); MEAN PLATELET VOLUME 9.6 fL (7.4-11.0); MONOCYTES # (AUTO) 0.4 x10^3/uL (0.3-0.8); MONOCYTES % (AUTO) 7.4 % (0.0-13.0); NEUTROPHILS # (AUTO) 1.8 x10^3/uL (2.2-4.8); NEUTROPHILS % (AUTO) 37.8 % (42.0-75.0); PLATELET COUNT 244 X10^3/uL (150.0-450.0); RED CELL DISTRIBUTION WIDTH 15.1 % (11.6-16.5); WHITE BLOOD COUNT 4.8 X10^3/uL (3.6-10.0)
[2020-11-21 09:58] LABS: CALCIUM 8.8 mg/dL (8.5-10.1); CARBON DIOXIDE 26.2 mmol/L (21-32); COR CA(FOR HYPOALB) 9.6 mg/dL (8.5-10.1); CREATININE 1.24 mg/dL (0.55-1.02); TOTAL PROTEIN 6.6 g/dL (6.4-8.2)
[2020-11-21] MEDS ORDERED: ZOFRAN INJ 4 MG VIAL ONE (11:14)
[2020-11-21] MEDS ORDERED: NS 1000 ML 1,000 ML ONE (11:14)
[2020-11-21] MEDS ORDERED: ZOFRAN INJ 4 MG VIAL IVP ONE (11:18)
[2020-11-21] MEDS: NS 1000 ML 1,000 ML IV SCH ×3 (11:43→20:54)
[2020-11-21] MEDS: PROTONIX INJ 40 MG VIAL 80 MG in NS 100 ML IV 80 ML IV SCH ×2 (11:44→20:59)
--- NOTE | 2020-11-21 12:59 | CT ---
HISTORYRectal bleedingSTUDYCT abdomen pelvis without contrastTechnique: Axial noncontrast images with coronal and sagittal reformats. Dose reduction procedures were used with mA/kv adjusted for body size. THIS EXAMINATION IS LIMITED DUE TO THE LACK OF INTRAVENOUS CONTRAST. The examination was performed in this manner at the sole discretion of the ordering caregiver and without input from Radiology.[id number] lung bases are clear. The liver, spleen, adrenal glands, an d pancreas are within normal limits only to the limitations of an unenhanced examination. No opaque s tones are present within the gallbladder. The kidneys are unobstructed and without stones. No uretera l calculi are identified. The abdominal aorta is normal in caliber but demonstrates some calcific ath erosclerotic change. No enlarged intraperitoneal adenopathy is identified. No enlarged retroperitonea l lymphadenopathy is identified. The appendix is normal. There are no findings suggestive of enteriti s, colitis or diverticulitis. No: Masses are identified. Examination of the pelvis demonstrated no ev idence for pelvic masses, pelvic fluid, or pelvic lymphadenopathy. Evaluation of the bladder is limit ed as it is empty. No lytic or blastic skeletal lesions of significance are identified.IMPRESSIONNo d efinite acute intra-abdominal or intrapelvic abnormality to the limitations of an examination perform ed without intravenous and without oral contrastElectronically signed by: CONCHA WASHINGTON (Nov 21, 2020 12:57:38)
[2020-11-21] MEDS ORDERED: DIPRIVAN VIAL 20 ML ONE (14:29)
[2020-11-21] MEDS ORDERED: ZOFRAN INJ 4 MG VIAL IVP PRN (14:34)
[2020-11-21 15:00] LABS: AMYLASE 53 Units/L (25-115); LIPASE 90 Units/L (73-393)
[2020-11-21] MEDS ORDERED: D5 1/2 NS 1000 ML 1,000 ML IV SCH (15:00)
[2020-11-21] MEDS ORDERED: LEVAQUIN PREMIX IV 250 MG 250 MG/50 ML BAG IV SCH (15:00)
[2020-11-21] MEDS: NEURONTIN CAP 300 MG PO SCH ×2 (16:12→20:59)
[2020-11-21 17:39] VITALS: BMI 34.2
[2020-11-21] MEDS: APRESOLINE TAB 25 MG PO SCH (20:49)
[2020-11-21] MEDS: MULTAQ PO SCH (20:50)
[2020-11-21] MEDS: LOPRESSOR TAB 50 MG PO SCH (20:50)
[2020-11-21] MEDS: MAG-OX TAB PO SCH (20:51)
[2020-11-21] MEDS: XALATAN OP SCH (20:52)
[2020-11-21] MEDS: AMBIEN PO PRN (20:55)
[2020-11-21] MEDS: PROVENTIL NEB TX 0.083% 2.5MG/ 3ML NEB PRN (21:12)
[2020-11-21] MEDS: PULMICORT NEB TX 0.5 MG NEB SCH (21:12)
[2020-11-21] MEDS: COMBIGAN EYE DROPS OP SCH (23:40)
[2020-11-22] MEDS: NS 1000 ML 1,000 ML IV SCH ×5 (05:11→20:41)
[2020-11-22] MEDS: NEURONTIN CAP 300 MG PO SCH ×3 (05:12→21:03)
[2020-11-22 06:37] LABS: APPEARANCE,URINE HAZY (CLEAR); BILIRUBIN,URINE NEGATIVE (NEGATIVE); BLOOD/HEMOGLOBIN,URINE 5+ (NEGATIVE); COLOR,URINE PINK (YELLOW); GLUCOSE, URINE NEGATIVE (NEGATIVE); KETONES,URINE NEGATIVE (NEGATIVE); LEUKOCYTE ESTERASE ,URINE 1+ (NEGATIVE); NITRITES,URINE NEGATIVE (NEGATIVE); PROTEIN,URINE 2+ (NEGATIVE); UROBILINOGEN,URINE NORMAL (NORMAL)
[2020-11-22 06:37] LABS: BLOOD UREA NITROGEN 16 mg/dL (7-18); CALCIUM 8.6 mg/dL (8.5-10.1); CARBON DIOXIDE 28.2 mmol/L (21-32); CHLORIDE 109 mmol/L (98-107); CREATININE 1.31 mg/dL (0.55-1.02); SODIUM 143 mmol/L (136-145); eGFR NON BLACK RACES 42 (>60)
[2020-11-22 06:38] LABS: RBC,URINE TNTC /HPF (0-3)
[2020-11-22 06:39] LABS: BACTERIA,URINE 1+ /HPF (NEGATIVE); COARSE GRANULAR CASTS,URINE FEW /HPF (NEGATIVE); SQUAMOUS EPITHELIAL CELL,UR NUMEROUS /HPF (NEGATIVE)
[2020-11-22 06:52] LABS: BASOPHILS % (AUTO) 0.2 % (0.2-1.0); EOSINOPHILS # (AUTO) 0.1 x10^3/uL (0.0-0.2); EOSINOPHILS % (AUTO) 1.1 % (0.9-2.9); HEMATOCRIT 26.4 % (36.0-47.0); HEMOGLOBIN 8.8 g/dL (12.0-16.0); LYMPHOCYTES # (AUTO) 2.9 X10^3/uL (1.3-2.9); LYMPHOCYTES % (AUTO) 45.5 % (21.0-51.0); MEAN CORPUSCULAR HEMOGLOBIN 28.6 pg (27.0-34.0); MEAN CORPUSCULAR HGB CONC 33.2 g/dL (33.0-35.0); MEAN CORPUSCULAR VOLUME 86.1 fL (80.0-100.0); MEAN PLATELET VOLUME 10.4 fL (7.4-11.0); MONOCYTES # (AUTO) 0.6 x10^3/uL (0.3-0.8); MONOCYTES % (AUTO) 9.8 % (0.0-13.0); NEUTROPHILS # (AUTO) 2.8 x10^3/uL (2.2-4.8); NEUTROPHILS % (AUTO) 43.4 % (42.0-75.0); PLATELET COUNT 216 X10^3/uL (150.0-450.0); RED BLOOD COUNT 3.07 X10^6/uL (3.5-5.4); RED CELL DISTRIBUTION WIDTH 15.6 % (11.6-16.5); WHITE BLOOD COUNT 6.4 X10^3/uL (3.6-10.0)
[2020-11-22] MEDS: CRESTOR TAB 10 MG PO SCH (08:55)
[2020-11-22] MEDS: MULTAQ PO SCH ×2 (08:56→20:40)
[2020-11-22] MEDS: LOPRESSOR TAB 50 MG PO SCH ×2 (08:57→20:39)
[2020-11-22] MEDS: APRESOLINE TAB 25 MG PO SCH ×2 (08:58→20:38)
[2020-11-22] MEDS: PROTONIX INJ 40 MG VIAL 80 MG in NS 100 ML IV 80 ML IV SCH ×2 (09:00→20:37)
[2020-11-22] MEDS ORDERED: AMBIEN PO SCH (09:00)
[2020-11-22] MEDS: NORVASC TAB 10 MG PO SCH (09:00)
[2020-11-22] MEDS: COMBIGAN EYE DROPS OP SCH ×2 (09:01→20:40)
[2020-11-22] MEDS: PULMICORT NEB TX 0.5 MG NEB SCH ×2 (09:17→20:25)
[2020-11-22] MEDS: ULTRAM PO PRN ×2 (10:50→20:43)
[2020-11-22] MEDS ORDERED: NS 500 ML IV 500 ML IV ONE (13:50)
[2020-11-22] MEDS ORDERED: LASIX IVP ONE (14:00)
[2020-11-22] MEDS: SINGULAIR TAB 10 MG PO SCH (15:34)
[2020-11-22] MEDS ORDERED: LASIX ONE (17:29)
[2020-11-22] MEDS: AMBIEN PO PRN (20:38)
[2020-11-22] MEDS: MAG-OX TAB PO SCH (20:39)
[2020-11-22] MEDS: XALATAN OP SCH (20:41)
[2020-11-22 22:04] LABS: HEMATOCRIT 31.7 % (36.0-47.0); HEMOGLOBIN 10.5 g/dL (12.0-16.0)
--- NOTE | 2020-11-22 22:25 | DR.PROGNOT ---
Hospital Progress Notes - Progress Note for Day of: Progress Note Date: 11/22/20 - Chief Complaint Chief Complaint: still having moderate bleeding with drop of Hgb . no abdominal pain , no nausea or vomiting . stable VS and comfortable . - Past Medical Family Social History Past Med/Fam/Surg Hx: No changes since H&P Allergies: Allergies No Known Drug Allergies Allergy (Verified 05/12/17 07:26) - Vital Signs Vital Signs: Temperature 98.9 F Pulse Rate [Left Radial] 66 Pulse Rate 89 Respiratory Rate 20 Blood Pressure [Left Arm] 138/62 Blood Pressure 147/82 O2 Sat by Pulse Oximetry 99 - Physical Exam Oriented: Normal Eyes: Normal Ear: Normal Nose: Normal Throat: Normal Respiratory: Normal Cardiovascular: Normal : Normal GI:Auscultation: Normal GI: Tenderness: Normal Skin: Normal Musculoskeletal: Normal, Back:Paraspinous Psychiatric: Normal Speech Pattern: Clear, Appropriate - Laboratory and Diagnostics Result Diagrams: 11/22/20 21:55 11/22/20 05:48 Labs: Laboratory WBC 6.4 X10^3/uL (3.6-10.0) 11/22/20 05:48 RBC 3.07 X10^6/uL (3.5-5.4) L 11/22/20 05:48 Hgb 10.5 g/dL (12.0-16.0) L 11/22/20 21:55 Hct 31.7 % (36.0-47.0) L 11/22/20 21:55 MCV 86.1 fL (80.0-100.0) 11/22/20 05:48 MCH 28.6 pg (27.0-34.0) 11/22/20 05:48 MCHC 33.2 g/dL (33.0-35.0) 11/22/20 05:48 RDW 15.6 % (11.6-16.5) 11/22/20 05:48 Plt Count 216 X10^3/uL (150.0-450.0) 11/22/20 05:48 MPV 10.4 fL (7.4-11.0) 11/22/20 05:48 Neut % (Auto) 43.4 % (42.0-75.0) 11/22/20 05:48 Lymph % (Auto) 45.5 % (21.0-51.0) 11/22/20 05:48 [place] % (Auto) 9.8 % (0.0-13.0) 11/22/20 05:48 Eos % (Auto) 1.1 % (0.9-2.9) 11/22/20 05:48 Baso % (Auto) 0.2 % (0.2-1.0) 11/22/20 05:48 Neut # (Auto) 2.8 x10^3/uL (2.2-4.8) 11/22/20 05:48 Lymph # (Auto) 2.9 X10^3/uL (1.3-2.9) 11/22/20 05:48 [place] # (Auto) 0.6 x10^3/uL (0.3-0.8) 11/22/20 05:48 Eos # (Auto) 0.1 x10^3/uL (0.0-0.2) 11/22/20 05:48 Baso # (Auto) 0.0 X10^3/uL (0.0-0.1) 11/22/20 05:48 Absolute Nucleated RBC 0.1 /100WBC 11/22/20 05:48 PT 15.6 SECONDS (11.8-14.3) 11/21/20 13:54 INR Target Range - 11/21/20 13:54 INR 1.31 (0.8-1.3) H 11/21/20 13:54 APTT 30.9 SECONDS (22.9-36.5) 11/21/20 13:54 PTT Comment - 11/21/20 13:54 Sodium 143 mmol/L (136-145) 11/22/20 05:48 Corrected Sodium TNP 11/22/20 05:48 Potassium 4.9 mmol/L (3.5-5.1) 11/22/20 05:48 Chloride 109 mmol/L (98-107) H 11/22/20 05:48 Carbon Dioxide 28.2 mmol/L (21-32) 11/22/20 05:48 BUN 16 mg/dL (7-18) 11/22/20 05:48 Creatinine 1.31 mg/dL (0.55-1.02) H 11/22/20 05:48 Est GFR (MDRD) Af Amer 51 (>60) L 11/22/20 05:48 Est GFR (MDRD) Non-Af 42 (>60) L 11/22/20 05:48 Glucose 106 mg/dL (65-99) H 11/22/20 05:48 Calcium 8.6 mg/dL (8.5-10.1) 11/22/20 05:48 Corrected Calcium 9.6 mg/dL (8.5-10.1) 11/21/20 09:40 Total Bilirubin 0.30 mg/dL (0.2-1.0) 11/21/20 09:40 AST 17 Units/L (15-37) 11/21/20 09:40 ALT 16 Units/L (12-78) 11/21/20 09:40 Alkaline Phosphatase 72 Units/L (46-116) 11/21/20 09:40 Total Protein 6.6 g/dL (6.4-8.2) 11/21/20 09:40 Albumin 3.0 g/dL (3.4-5.0) L 11/21/20 09:40 Globulin 3.6 g/dL (2.5-4.5) 11/21/20 09:40 Albumin/Globulin Ratio 0.8 Ratio (1.1-2.1) L 11/21/20 09:40 Amylase 53 Units/L (25-115) 11/21/20 09:00 Lipase 90 Units/L (73-393) 11/21/20 09:00 Specimen Type Clean catch urine 11/22/20 06:00 Urine Color [place] (YELLOW) 11/22/20 06:00 Urine Appearance Hazy (CLEAR) 11/22/20 06:00 Urine pH 5.0 (5.0 - 8.0) 11/22/20 06:00 Ur Specific [place] 1.020 (1.000-1.030) 11/22/20 06:00 Urine Protein 2+ (NEGATIVE) 11/22/20 06:00 Urine Glucose (UA) Negative (NEGATIVE) 11/22/20 06:00 Urine Ketones Negative (NEGATIVE) 11/22/20 06:00 Urine Occult Blood 5+ (NEGATIVE) 11/22/20 06:00 Urine Nitrite Negative (NEGATIVE) 11/22/20 06:00 Urine Bilirubin Negative (NEGATIVE) 11/22/20 06:00 Urine Urobilinogen Normal (NORMAL) 11/22/20 06:00 Ur Leukocyte Esterase 1+ (NEGATIVE) 11/22/20 06:00 Urine RBC Tntc /HPF (0-3) A 11/22/20 06:00 Urine WBC 3-5 /HPF (0-5) 11/22/20 06:00 Ur Squamous Epith Cells Numerous /HPF (NEGATIVE) 11/22/20 06:00 Urine Bacteria 1+ /HPF (NEGATIVE) 11/22/20 06:00 Coarse Granular Casts Few /HPF (NEGATIVE) 11/22/20 06:00 Ur Culture Indicated? No/not indicated 11/22/20 06:00 Stool Description 30g grossly bloody 11/21/20 11:05 Stl Occult Blood (IFOB) Positive (NEGATIVE) A 11/21/20 11:05 Blood Type O POSITIVE 11/22/20 09:58 Antibody Screen Negative 11/22/20 09:58 Crossmatch See Detail 11/22/20 09:58 - Assessment and Plan 1: bleeding diverticulosis. anemia 2en to 1.. CAD on anticoagulant .. obesity . same plan and conservative management ..
[2020-11-23] MEDS: NEURONTIN CAP 300 MG PO SCH ×3 (05:02→21:14)
[2020-11-23] MEDS: PROTONIX INJ 40 MG VIAL 80 MG in NS 100 ML IV 80 ML IV SCH ×2 (05:24→20:17)
[2020-11-23 06:52] LABS: BASOPHILS % (AUTO) 0.5 % (0.2-1.0); EOSINOPHILS # (AUTO) 0.1 x10^3/uL (0.0-0.2); EOSINOPHILS % (AUTO) 1.3 % (0.9-2.9); HEMATOCRIT 31.7 % (36.0-47.0); HEMOGLOBIN 10.5 g/dL (12.0-16.0); LYMPHOCYTES # (AUTO) 2.9 X10^3/uL (1.3-2.9); LYMPHOCYTES % (AUTO) 34.8 % (21.0-51.0); MEAN CORPUSCULAR HEMOGLOBIN 28.9 pg (27.0-34.0); MEAN CORPUSCULAR HGB CONC 33.2 g/dL (33.0-35.0); MEAN CORPUSCULAR VOLUME 87.2 fL (80.0-100.0); MEAN PLATELET VOLUME 10.5 fL (7.4-11.0); MONOCYTES # (AUTO) 0.7 x10^3/uL (0.3-0.8); MONOCYTES % (AUTO) 8.9 % (0.0-13.0); NEUTROPHILS # (AUTO) 4.6 x10^3/uL (2.2-4.8); NEUTROPHILS % (AUTO) 54.5 % (42.0-75.0); PLATELET COUNT 178 X10^3/uL (150.0-450.0); RED BLOOD COUNT 3.63 X10^6/uL (3.5-5.4); RED CELL DISTRIBUTION WIDTH 15.1 % (11.6-16.5); WHITE BLOOD COUNT 8.4 X10^3/uL (3.6-10.0)
[2020-11-23 07:10] LABS: ALANINE AMINOTRANSFERASE 16 Units/L (12-78); ALBUMIN 2.9 g/dL (3.4-5.0); ALKALINE PHOSPHATASE 61 Units/L (46-116); ASPARTATE AMINO TRANSFERASE 15 Units/L (15-37); BLOOD UREA NITROGEN 13 mg/dL (7-18); CALCIUM 8.6 mg/dL (8.5-10.1); CARBON DIOXIDE 25.5 mmol/L (21-32); CHLORIDE 109 mmol/L (98-107); COR CA(FOR HYPOALB) 9.5 mg/dL (8.5-10.1); CREATININE 1.25 mg/dL (0.55-1.02); SODIUM 143 mmol/L (136-145); TOTAL PROTEIN 6.2 g/dL (6.4-8.2); eGFR NON BLACK RACES 45 (>60)
[2020-11-23] MEDS: APRESOLINE TAB 25 MG PO SCH ×2 (09:13→20:18)
[2020-11-23] MEDS: SINGULAIR TAB 10 MG PO SCH (09:14)
[2020-11-23] MEDS: NORVASC TAB 10 MG PO SCH (09:15)
[2020-11-23] MEDS: LOPRESSOR TAB 50 MG PO SCH ×2 (09:15→20:17)
[2020-11-23] MEDS: MULTAQ PO SCH ×2 (09:15→20:18)
[2020-11-23] MEDS: CRESTOR TAB 10 MG PO SCH (09:16)
[2020-11-23] MEDS: COMBIGAN EYE DROPS OP SCH ×2 (09:18→20:19)
[2020-11-23] MEDS: PROVENTIL NEB TX 0.083% 2.5MG/ 3ML NEB PRN ×2 (09:20→20:55)
[2020-11-23] MEDS: PULMICORT NEB TX 0.5 MG NEB SCH ×2 (09:20→20:55)
[2020-11-23] MEDS: ULTRAM PO PRN ×2 (10:15→20:21)
[2020-11-23] MEDS: AMBIEN PO PRN (20:16)
[2020-11-23] MEDS: MAG-OX TAB PO SCH (20:17)
[2020-11-23] MEDS: XALATAN OP SCH (20:19)
[2020-11-23] MEDS: NS 1000 ML 1,000 ML IV SCH (20:28)
[2020-11-24] MEDS: PROTONIX INJ 40 MG VIAL 80 MG in NS 100 ML IV 80 ML IV SCH ×2 (02:25→09:33)
[2020-11-24] MEDS: NEURONTIN CAP 300 MG PO SCH (05:17)
[2020-11-24] MEDS: ULTRAM PO PRN (05:17)
[2020-11-24 06:18] LABS: BASOPHILS % (AUTO) 0.4 % (0.2-1.0); EOSINOPHILS # (AUTO) 0.1 x10^3/uL (0.0-0.2); EOSINOPHILS % (AUTO) 1.4 % (0.9-2.9); HEMATOCRIT 30.2 % (36.0-47.0); HEMOGLOBIN 9.9 g/dL (12.0-16.0); LYMPHOCYTES # (AUTO) 2.8 X10^3/uL (1.3-2.9); LYMPHOCYTES % (AUTO) 36.5 % (21.0-51.0); MEAN CORPUSCULAR HEMOGLOBIN 28.8 pg (27.0-34.0); MEAN CORPUSCULAR HGB CONC 32.9 g/dL (33.0-35.0); MEAN CORPUSCULAR VOLUME 87.7 fL (80.0-100.0); MEAN PLATELET VOLUME 10.6 fL (7.4-11.0); MONOCYTES # (AUTO) 0.7 x10^3/uL (0.3-0.8); MONOCYTES % (AUTO) 8.8 % (0.0-13.0); NEUTROPHILS # (AUTO) 4.1 x10^3/uL (2.2-4.8); NEUTROPHILS % (AUTO) 52.9 % (42.0-75.0); PLATELET COUNT 177 X10^3/uL (150.0-450.0); RED BLOOD COUNT 3.44 X10^6/uL (3.5-5.4); RED CELL DISTRIBUTION WIDTH 15.2 % (11.6-16.5); WHITE BLOOD COUNT 7.8 X10^3/uL (3.6-10.0)
[2020-11-24 06:30] LABS: ALANINE AMINOTRANSFERASE 17 Units/L (12-78); ALBUMIN 2.8 g/dL (3.4-5.0); ALKALINE PHOSPHATASE 65 Units/L (46-116); ASPARTATE AMINO TRANSFERASE 19 Units/L (15-37); BLOOD UREA NITROGEN 11 mg/dL (7-18); CALCIUM 8.6 mg/dL (8.5-10.1); CARBON DIOXIDE 25.6 mmol/L (21-32); CHLORIDE 107 mmol/L (98-107); COR CA(FOR HYPOALB) 9.6 mg/dL (8.5-10.1); CREATININE 1.25 mg/dL (0.55-1.02); SODIUM 142 mmol/L (136-145); TOTAL PROTEIN 6.2 g/dL (6.4-8.2); eGFR NON BLACK RACES 45 (>60)
--- NOTE | 2020-11-24 08:28 | W.DIS.FURT ---
Summary of Discharge Discharge Summary of Date Date of Exam: 11/24/20 Admission Date Date of Admission: 11/21/20 Admission Diagnosis Hospital Course: Pt is a 70 year old female admitted for GI bleed after having bright red blood in stool with clots. General surgery was consulted-Dr. Harrell, and limited colonoscopy was performed that revealed bleeding diverticulum. Pt was also on aspirin and eliquis for her history of atrial fibrillation which was held. She received 2 units of packed red blood cells for anemia. Her hgb responded well and pt's diet advanced. On discharge patient had no signs of active bleeding, vitals stable, Hgb stabilized. Pt has preop for heart cath in 10 days due to abnormal stress test. Pt instructed to hold eliquis until then and follow up with cardiology and GI-Dr Hamilton(has appointment this week) to determine restarting medication. Pt discharged in stable condition. Instructed to follow up with pcp in 3-5 days. Vital Signs: Vital Signs (72 hours) 11/21/20 09:02 11/21/20 10:00 11/21/20 11:00 Temperature 98.3 F Pulse Rate 77 74 75 Pulse Rate [Left Radial] Respiratory Rate 18 18 Blood Pressure 143/92 151/89 147/82 Blood Pressure [Left Arm] O2 Sat by Pulse Oximetry 97 98 98 11/21/20 13:00 11/21/20 14:50 11/21/20 15:05 Temperature 98.0 F Pulse Rate Pulse Rate [Left Radial] 77 69 65 Respiratory Rate 18 18 18 Blood Pressure Blood Pressure [Left Arm] 152/90 147/78 129/71 O2 Sat by Pulse Oximetry 98 98 99 11/21/20 15:20 11/21/20 15:35 11/21/20 15:50 Temperature 99.4 F 99.7 F H Pulse Rate Pulse Rate [Left Radial] 66 69 72 Respiratory Rate 18 18 18 Blood Pressure Blood Pressure [Left Arm] 142/73 134/65 149/66 O2 Sat by Pulse Oximetry 98 98 98 11/21/20 16:00 11/21/20 20:00 11/21/20 21:01 Temperature 99.7 F H 97.5 F L 97.5 F L Pulse Rate Pulse Rate [Left Radial] 72 75 75 Respiratory Rate 18 18 18 Blood Pressure Blood Pressure [Left Arm] 149/66 142/65 142/65 O2 Sat by Pulse Oximetry 98 100 100 11/21/20 21:13 11/22/20 00:00 11/22/20 04:00 Temperature 97.9 F 98.6 F Pulse Rate 71 Pulse Rate [Left Radial] 68 65 Respiratory Rate 20 20 Blood Pressure Blood Pressure [Left Arm] 137/65 132/64 O2 Sat by Pulse Oximetry 99 99 100 11/22/20 08:00 11/22/20 09:17 11/22/20 10:50 Temperature 98 F Pulse Rate 72 Pulse Rate [Left Radial] 63 Respiratory Rate 18 20 Blood Pressure Blood Pressure [Left Arm] 132/62 O2 Sat by Pulse Oximetry 98 98 11/22/20 11:50 11/22/20 12:00 11/22/20 16:00 Temperature 98.3 F 98.1 F Pulse Rate Pulse Rate [Left Radial] 63 65 Respiratory Rate 20 18 18 Blood Pressure Blood Pressure [Left Arm] 112/59 137/61 O2 Sat by Pulse Oximetry 97 100 11/22/20 19:50 11/22/20 20:25 11/22/20 20:43 Temperature 98.9 F Pulse Rate 89 Pulse Rate [Left Radial] 66 Respiratory Rate 20 20 Blood Pressure Blood Pressure [Left Arm] 138/62 O2 Sat by Pulse Oximetry 99 99 11/22/20 21:43 11/23/20 00:00 11/23/20 04:00 Temperature 98.7 F 98.8 F Pulse Rate Pulse Rate [Left Radial] 63 65 Respiratory Rate 20 21 20 Blood Pressure Blood Pressure [Left Arm] 108/52 125/59 O2 Sat by Pulse Oximetry 100 99 11/23/20 08:00 11/23/20 09:20 11/23/20 10:15 Temperature 98.3 F Pulse Rate 65 Pulse Rate [Left Radial] 63 Respiratory Rate 20 20 Blood Pressure Blood Pressure [Left Arm] 151/68 O2 Sat by Pulse Oximetry 99 97 11/23/20 11:15 11/23/20 12:00 11/23/20 16:00 Temperature 98.3 F 98.2 F Pulse Rate Pulse Rate [Left Radial] 83 60 Respiratory Rate 18 20 20 Blood Pressure Blood Pressure [Left Arm] 110/53 124/60 O2 Sat by Pulse Oximetry 98 98 11/23/20 20:00 11/23/20 20:21 11/23/20 20:55 Temperature 99.0 F Pulse Rate 65 Pulse Rate [Left Radial] 66 Respiratory Rate 18 20 Blood Pressure Blood Pressure [Left Arm] 143/65 O2 Sat by Pulse Oximetry 99 98 11/23/20 21:21 11/23/20 23:47 11/24/20 03:27 Temperature 98.7 F 98.2 F Pulse Rate Pulse Rate [Left Radial] 64 63 Respiratory Rate 20 20 18 Blood Pressure Blood Pressure [Left Arm] 137/78 135/65 O2 Sat by Pulse Oximetry 98 99 11/24/20 05:17 11/24/20 06:17 Temperature Pulse Rate Pulse Rate [Left Radial] Respiratory Rate 20 20 Blood Pressure Blood Pressure [Left Arm] O2 Sat by Pulse Oximetry Labs: Laboratory Last Values WBC 7.8 X10^3/uL (3.6-10.0) 11/24/20 05:42 RBC 3.44 X10^6/uL (3.5-5.4) L 11/24/20 05:42 Hgb 9.9 g/dL (12.0-16.0) L 11/24/20 05:42 Hct 30.2 % (36.0-47.0) L 11/24/20 05:42 MCV 87.7 fL (80.0-100.0) 11/24/20 05:42 MCH 28.8 pg (27.0-34.0) 11/24/20 05:42 MCHC 32.9 g/dL (33.0-35.0) L 11/24/20 05:42 RDW 15.2 % (11.6-16.5) 11/24/20 05:42 Plt Count 177 X10^3/uL (150.0-450.0) 11/24/20 05:42 MPV 10.6 fL (7.4-11.0) 11/24/20 05:42 Neut % (Auto) 52.9 % (42.0-75.0) 11/24/20 05:42 Lymph % (Auto) 36.5 % (21.0-51.0) 11/24/20 05:42 [place] % (Auto) 8.8 % (0.0-13.0) 11/24/20 05:42 Eos % (Auto) 1.4 % (0.9-2.9) 11/24/20 05:42 Baso % (Auto) 0.4 % (0.2-1.0) 11/24/20 05:42 Neut # (Auto) 4.1 x10^3/uL (2.2-4.8) 11/24/20 05:42 Lymph # (Auto) 2.8 X10^3/uL (1.3-2.9) 11/24/20 05:42 [place] # (Auto) 0.7 x10^3/uL (0.3-0.8) 11/24/20 05:42 Eos # (Auto) 0.1 x10^3/uL (0.0-0.2) 11/24/20 05:42 Baso # (Auto) 0.0 X10^3/uL (0.0-0.1) 11/24/20 05:42 Absolute Nucleated RBC 0.1 /100WBC 11/24/20 05:42 PT 15.6 SECONDS (11.8-14.3) 11/21/20 13:54 INR Target Range - 11/21/20 13:54 INR 1.31 (0.8-1.3) H 11/21/20 13:54 APTT 30.9 SECONDS (22.9-36.5) 11/21/20 13:54 PTT Comment - 11/21/20 13:54 Sodium 142 mmol/L (136-145) 11/24/20 05:42 Corrected Sodium TNP 11/24/20 05:42 Potassium 4.0 mmol/L (3.5-5.1) 11/24/20 05:42 Chloride 107 mmol/L (98-107) 11/24/20 05:42 Carbon Dioxide 25.6 mmol/L (21-32) 11/24/20 05:42 BUN 11 mg/dL (7-18) 11/24/20 05:42 Creatinine 1.25 mg/dL (0.55-1.02) H 11/24/20 05:42 Est GFR (MDRD) Af Amer 54 (>60) L 11/24/20 05:42 Est GFR (MDRD) Non-Af 45 (>60) L 11/24/20 05:42 Glucose 104 mg/dL (65-99) H 11/24/20 05:42 Calcium 8.6 mg/dL (8.5-10.1) 11/24/20 05:42 Corrected Calcium 9.6 mg/dL (8.5-10.1) 11/24/20 05:42 Total Bilirubin 0.30 mg/dL (0.2-1.0) 11/24/20 05:42 AST 19 Units/L (15-37) 11/24/20 05:42 ALT 17 Units/L (12-78) 11/24/20 05:42 Alkaline Phosphatase 65 Units/L (46-116) 11/24/20 05:42 Total Protein 6.2 g/dL (6.4-8.2) L 11/24/20 05:42 Albumin 2.8 g/dL (3.4-5.0) L 11/24/20 05:42 Globulin 3.4 g/dL (2.5-4.5) 11/24/20 05:42 Albumin/Globulin Ratio 0.8 Ratio (1.1-2.1) L 11/24/20 05:42 Amylase 53 Units/L (25-115) 11/21/20 09:00 Lipase 90 Units/L (73-393) 11/21/20 09:00 Specimen Type Clean catch urine 11/22/20 06:00 Urine Color [place]on (YELLOW) 11/22/20 06:00 Urine Appearance Hazy (CLEAR) 11/22/20 06:00 Urine pH 5.0 (5.0 - 8.0) 11/22/20 06:00 Ur Specific [place] 1.020 (1.000-1.030) 11/22/20 06:00 Urine Protein 2+ (NEGATIVE) 11/22/20 06:00 Urine Glucose (UA) Negative (NEGATIVE) 11/22/20 06:00 Urine Ketones Negative (NEGATIVE) 11/22/20 06:00 Urine Occult Blood 5+ (NEGATIVE) 11/22/20 06:00 Urine Nitrite Negative (NEGATIVE) 11/22/20 06:00 Urine Bilirubin Negative (NEGATIVE) 11/22/20 06:00 Urine Urobilinogen Normal (NORMAL) 11/22/20 06:00 Ur Leukocyte Esterase 1+ (NEGATIVE) 11/22/20 06:00 Urine RBC Tntc /HPF (0-3) A 11/22/20 06:00 Urine WBC 3-5 /HPF (0-5) 11/22/20 06:00 Ur Squamous Epith Cells Numerous /HPF (NEGATIVE) 11/22/20 06:00 Urine Bacteria 1+ /HPF (NEGATIVE) 11/22/20 06:00 Coarse Granular Casts Few /HPF (NEGATIVE) 11/22/20 06:00 Ur Culture Indicated? No/not indicated 11/22/20 06:00 Stool Description 30g grossly bloody 11/21/20 11:05 Stl Occult Blood (IFOB) Positive (NEGATIVE) A 11/21/20 11:05 Blood Type O POSITIVE 11/22/20 09:58 Antibody Screen Negative 11/22/20 09:58 Crossmatch See Detail 11/22/20 09:58 Reason For Visit: ACUTE GASTROINTESTIONAL BLEEDING Discharge Date Discharge Date: 11/24/20 Discharge Diagnosis All Active Problems (Updated 04/16/13 @ 20:39 by MANNY BECKMAN) Back strain of thoracic region (Active) Plan of Treatment: Continue with present treatment and follow up plan. Pt is to keep follow up appointment as instructed and take medications as ordered. Discharge Medications Discharge Medications: No Known Drug Allergies Allergy (Verified 05/12/17 07:26) CONTINUE taking the following medications Combigan 1 drp OPHTHALMIC (EYE) BID 11/21/20 [History] Multaq 400 mg PO BID 11/21/20 [History] albuterol sulfate [ProAir HFA] 2 puff INHALATION BID PRN 11/21/20 [History] budesonide-formoterol [Symbicort] 1 puff INHALATION DAILY 11/21/20 [History] dicyclomine 10 mg PO TID 11/21/20 [History] duloxetine 60 mg PO DAILY 11/21/20 [History] fluticasone propionate 1 spray INTRANASAL BID 11/21/20 [History] latanoprost 1 drp OPHTHALMIC (EYE) QHS 11/21/20 [History] loperamide 2 mg PO TID PRN 11/21/20 [History] magnesium 250 mg PO QHS 11/21/20 [History] nitroglycerin 0.4 mg SUBLINGUAL Q5-15M PRN 11/21/20 [History] ondansetron 4 mg PO Q8H PRN 11/21/20 [History] Follow up and Referral Follow Up: 1 Week Discharge Disposition Discharge Disposition: Home Discharge Condition: Stable Discharge Plan Discharge Plan Hospital Course: Pt is a 70 year old female admitted for GI bleed after having bright red blood in stool with clots. General surgery was consulted-Dr. Harrell, and limited colonoscopy was performed that revealed bleeding diverticulum. Pt was also on aspirin and eliquis for her history of atrial fibrillation which was held. She received 2 units of packed red blood cells for anemia. Her hgb responded well and pt's diet advanced. On discharge patient had no signs of active bleeding, vitals stable, Hgb stabilized. Pt has preop for heart cath in 10 days due to abnormal stress test. Pt instructed to hold eliquis until then and follow up with cardiology and GI-Dr Hamilton(has appointment this week) to determine restarting medication. Pt discharged in stable condition. Instructed to follow up with pcp in 3-5 days. Patient Disposition: 01 HOME, SELF-CARE Condition: Stable Health Concerns: Post Hospitalization: new medications and changes needed to prevent readmission or further decline. Pt educated and given instructions on all concerns. Plan of Treatment: Continue with present treatment and follow up plan. Pt is to keep follow up appointment as instructed and take medications as ordered. Prescriptions: Continued spironolactone 25 MG tablet 51 mg PO DAILY RF: 0 glimepiride [Amaryl] 2 MG tablet 2 mg PO DAILY RF: 0 amlodipine 10 MG tablet 10 mg PO DAILY RF: 0 metoprolol tartrate 50 MG tablet 25 mg PO BID RF: 0 gabapentin 300 MG capsule 600 mg PO TID RF: 0 montelukast [Singulair] 10 MG tablet 10 mg PO DAILY RF: 0 zolpidem 5 MG tablet 10 mg PO DAILY RF: 0 rosuvastatin [Crestor] 10 MG tablet 20 mg PO DAILY RF: 0 tizanidine [Zanaflex] 2 MG capsule 4 mg PO BID PRNRF: 0 tramadol 50 mg Tablet 100 mg PO QID PRNRF: 0 pantoprazole 40 mg Tablet,Delayed Release (Dr/Ec) 40 mg PO BID RF: 0 hydralazine 50 mg Tablet 100 mg PO BID RF: 0 furosemide 20 mg Tablet 20 mg PO BID RF: 0 latanoprost 0.005 % Drops 1 drp OPHTHALMIC (EYE) QHS RF: 0 loperamide 2 mg Capsule 2 mg PO TID PRNRF: 0 nitroglycerin 0.4 mg Tablet, Sublingual 0.4 mg SUBLINGUAL Q5-15M PRNRF: 0 magnesium 250 mg Tablet 250 mg PO QHS RF: 0 albuterol sulfate [ProAir HFA] 90 mcg/actuation Hfa Aerosol Inhaler 2 puff INHALATION BID PRNRF: 0 ondansetron 4 mg Tablet,Disintegrating 4 mg PO Q8H PRNRF: 0 fluticasone propionate 50 mcg/actuation [place],Suspension 1 spray INTRANASAL BID RF: 0 dicyclomine 10 mg Capsule 10 mg PO TID RF: 0 duloxetine 60 mg Capsule,Delayed Release(Dr/Ec) 60 mg PO DAILY RF: 0 budesonide-formoterol [Symbicort] 160-4.5 mcg/actuation Hfa Aerosol Inhaler 1 puff INHALATION DAILY RF: 0 Combigan 0.2-0.5 % Drops 1 drp OPHTHALMIC (EYE) BID RF: 0 Multaq 400 mg Tablet 400 mg PO BID RF: 0 Discontinued aspirin 81 MG tablet,chewable 81 mg PO DAILY RF: 0 Eliquis 5 mg Tablet 5 mg PO BID RF: 0 Follow ups/Referrals Follow ups/Referrals: JOEL ORLANDO [STAFF PHYSICIAN] - 11/26/20 2:45 pm NATALY HAMILTON [STAFF PHYSICIAN] - 12/02/20 3:00 pm Jignesh Schaffer [Primary Care Provider] - 12/01/20 2:15 pm Instructions Instructions: Tips for Eating Away From Home If You Have Diabetes, Chronic Obstructive Pulmonary Disease Exacerbation, [id number], Hypertension, Obzt-[id number], Gastrointestinal Bleeding, [id number]-[id number] Stand Alone Forms: Excuse From Work or School, Precautions for COVID19, Patient Portal, Social Distancing
[2020-11-24] MEDS: PULMICORT NEB TX 0.5 MG NEB SCH (09:20)
[2020-11-24] MEDS: PROVENTIL NEB TX 0.083% 2.5MG/ 3ML NEB PRN (09:20)
[2020-11-24] MEDS: CRESTOR TAB 10 MG PO SCH (09:27)
[2020-11-24] MEDS: LOPRESSOR TAB 50 MG PO SCH (09:27)
[2020-11-24] MEDS: COMBIGAN EYE DROPS OP SCH (09:27)
[2020-11-24] MEDS: APRESOLINE TAB 25 MG PO SCH (09:27)
[2020-11-24] MEDS: SINGULAIR TAB 10 MG PO SCH (09:28)
[2020-11-24] MEDS: NORVASC TAB 10 MG PO SCH (09:28)
[2020-11-24] MEDS: MULTAQ PO SCH (09:32)
[2020-11-24 10:34] VITALS: BP 135/60
== END 2020-11-24 11:10 | disposition home or self-care (01) | DRG 379 ==
LOC: ER 08:59 → MED/SURG 13:36
PROVIDERS: ADMIT Obstetrics & Gynecology Obstetrics; ATTEND Family Medicine
PROC: SIGMOID (2020-11-21 14:05)
DX: E11.65 Type 2 diabetes mellitus with hyperglycemia; I10 Essential (primary) hypertension; K62.5 Hemorrhage of anus and rectum; Z79.01 Long term (current) use of anticoagulants; K57.31 Diverticulosis of large intestine without perforation or abscess with bleeding

== ENCOUNTER 2022-01-31 11:46 | Observation (INO) ==
--- NOTE | 2022-01-31 12:23 | DR.SOBA ---
HPI Time Seen Time Seen by Provider: 01/31/22 12:21 Primary Care Physician Primary Care Physician: craig Dupree Chief Complaint Doctors Comments: 71 y/o female presents for evaluation. Not feeling well past 6 days. + nausea, diarrhea. Unable to eat, drink much. + weaknesss, not taking her meds. + h/o DM, HTN. Had some LLQ abdominal discomfort, sharp, did not radiate, + better now. Denies fever, chills, cough, congestion, urinary issues. Did have cardiac procedure, shocked for atrial fibrillation, on the . Chief Complaint:: Weakness, SOB, diverticulitis - States shes been sick on her stomach since Tuesday. No vomiting, just diarrhea. States she started getting SOB two days ago. Pt does have COPD and Hx of Asthma. Pt does take breathing treatments from time to time but hasnt used her home breathing treatments recently. Pt O2 in triage is 100% on RA. Pt says she went to Dr. Patterson on and "he shocked my heart to get it out of Afib". Source History Provided: Patient Mode of Arrival Mode of Arrival: Wheelchair Timing Onset of Chief Complaint: 01/26/22 PMH PMH Past Medical History: Yes Past Medical History: Arthritis, Asthma, COPD, Diabetes, Hypertension and Renal Disease Past Medical History Comment: Afib, Kidney failure stage 3, Type 2 DM, Diverticulitis Past Surgical History: Yes Surgical History: Hysterectomy and Ortho Surgery Past Surgical History Comment: Ortho bilateral feet, cataracts Family History History of Family Medical Conditions: Yes Family Medical History: Diabetes Mellitus, Cancer, Heart Failure and Hypertension Social History Does any household member use tobacco: No Alcohol Use: None Do you use any recreational Drugs:: No Lives With: Family Lives Where: Home Infectious screening Have you had fever, night sweats or hemotysis?: No Have you traveled outside the country in the last 6 months?: No Isolation: Standard ROS Review of Systems Constitutional: Weakness Eyes: No Symptoms Reported ENTM: No Symptoms Reported Respiratoy: No Symptoms Reported Cardiovascular: No Symptoms Reported Gastrointestinal/Abdominal: Abdominal Pain, Diarrhea and Nausea Genitourinary: No Symptoms Reported Neurological: Weakness Musculoskeletal: No Symptoms Reported Integumentary: No Symptoms Reported Hematologic/Lymphatic: No Symptoms Reported Psychiatric: No Symptoms Reported All Other Systems: Reviewed and Negative PE Vital Signs Vitals: Temperature 98.0 F Pulse Rate 71 Respiratory Rate 29 Blood Pressure [Left Arm] 118/66 Blood Pressure 203/96 O2 Sat by Pulse Oximetry 98 General General Appearance: Alert and In No Apparent Distress Head Head Exam: Normal Inspection Eyes Eye exam: PERRL and EOMI ENT ENT Exam: Normal Oropharynx and Mucous Membranes Moist Neck Neck Exam: Normal Inspection and Full ROM; negative Tenderness Respiratory Respiratory Exam: Normal Lung Sounds Bilat; negative Accessory Muscle Use or Respiratory Distress Cardiovascular Cardiovascular Exam: Regular Rate, Normal Rhythm and Normal Heart Sounds Abdominal Exam Abdominal Exam: Normal Inspection, Normal Bowel Sounds, Soft and Tenderness (+/- LLQ, no guarding or rebound) Extremities Extremities Exam: Normal Inspection; negative Edema Back Back Exam: Normal Inspection; negative (R) CVA Tenderness or (L) CVA Tenderness Neurologic Neurological Exam: Alert, Oriented X3 and CN II-XII Intact; negative Motor Sensory Deficit Skin Skin Exam: Warm and Dry MDM Differential Diagnosis Differential Diagnosis: Other (enteritis, diverticulitis, infectious diarrhea, HTN urgency) COURSE Treatment Treatment: Pt feeling bad over past several days, unable to take her meds. PE benign. W/u initiated. Pt given IV fluids, IV zofran. 1350 - not any better. Was given IV hydralazine for BP. CBC, CMP, cardiac enzymes all acceptable. CXR normal. Will give additional IV zofran, add IV protonix. LLQ pain worsening. Given IV analgesia, CT ordered. CT abd/pelvis with diverticulosis, no -itis per radiology. Will admit pt for control of her nausea and blood pressure. Discussed with her covering MD, Dr Bates. Will add campylobacter test. Will admit. ROR Labs Reviewed Laboratory Results Reviewed?: Yes Result Diagrams: 01/31/22 12:44 01/31/22 12:44 Laboratory: WBC 5.5 X10^3/uL (3.6-10.0) 01/31/22 12:44 RBC 4.59 X10^6/uL (3.5-5.4) 01/31/22 12:44 Hgb 12.6 g/dL (12.0-16.0) 01/31/22 12:44 Hct 38.5 % (36.0-47.0) 01/31/22 12:44 MCV 83.8 fL (80.0-100.0) 01/31/22 12:44 MCH 27.4 pg (27.0-34.0) 01/31/22 12:44 MCHC 32.7 g/dL (33.0-35.0) L 01/31/22 12:44 RDW 15.7 % (11.6-16.5) 01/31/22 12:44 Plt Count 245 X10^3/uL (150.0-450.0) 01/31/22 12:44 MPV 10.3 fL (7.4-11.0) 01/31/22 12:44 Neut % (Auto) 56.3 % (42.0-75.0) 01/31/22 12:44 Lymph % (Auto) 34.5 % (21.0-51.0) 01/31/22 12:44 [place] % (Auto) 8.4 % (0.0-13.0) 01/31/22 12:44 Eos % (Auto) 0.3 % (0.9-2.9) L 01/31/22 12:44 Baso % (Auto) 0.5 % (0.2-1.0) 01/31/22 12:44 Neut # (Auto) 3.1 x10^3/uL (2.2-4.8) 01/31/22 12:44 Lymph # (Auto) 1.9 X10^3/uL (1.3-2.9) 01/31/22 12:44 [place] # (Auto) 0.5 x10^3/uL (0.3-0.8) 01/31/22 12:44 Eos # (Auto) 0.0 x10^3/uL (0.0-0.2) 01/31/22 12:44 Baso # (Auto) 0.0 X10^3/uL (0.0-0.1) 01/31/22 12:44 Absolute Nucleated RBC 0.1 /100WBC 01/31/22 12:44 Sodium 142 mmol/L (136-145) 01/31/22 12:44 Corrected Sodium TNP 01/31/22 12:44 Potassium 4.2 mmol/L (3.5-5.1) 01/31/22 12:44 Chloride 105 mmol/L (98-107) 01/31/22 12:44 Carbon Dioxide 29.2 mmol/L (21-32) 01/31/22 12:44 BUN 5 mg/dL (7-18) L 01/31/22 12:44 Creatinine 1.16 mg/dL (0.55-1.02) H 01/31/22 12:44 Est GFR (MDRD) Af Amer 59 (>60) 01/31/22 12:44 Est GFR (MDRD) Non-Af 49 (>60) L 01/31/22 12:44 Glucose 107 mg/dL (65-99) H 01/31/22 12:44 Calcium 8.5 mg/dL (8.5-10.1) 01/31/22 12:44 Corrected Calcium 9.3 mg/dL (8.5-10.1) 01/31/22 12:44 Total Bilirubin 0.30 mg/dL (0.2-1.0) 01/31/22 12:44 AST 15 Units/L (15-37) 01/31/22 12:44 ALT 13 Units/L (12-78) 01/31/22 12:44 Alkaline Phosphatase 103 Units/L (46-116) 01/31/22 12:44 Creatine Kinase 71 Units/L (26-192) 01/31/22 12:44 Troponin I High Sens 12.3 ng/L (4.0-60.0) 01/31/22 12:44 Total Protein 7.3 g/dL (6.4-8.2) 01/31/22 12:44 Albumin 3.0 g/dL (3.4-5.0) L 01/31/22 12:44 Globulin 4.3 g/dL (2.5-4.5) 01/31/22 12:44 Albumin/Globulin Ratio 0.7 Ratio (1.1-2.1) L 01/31/22 12:44 Specimen Type Clean catch urine 01/31/22 13:55 Urine Color Yellow (YELLOW) 01/31/22 13:55 Urine Appearance Clear (CLEAR) 01/31/22 13:55 Urine pH 7.0 (5.0 - 8.0) 01/31/22 13:55 Ur Specific [place] 1.010 (1.000-1.030) 01/31/22 13:55 Urine Protein 1+ (NEGATIVE) 01/31/22 13:55 Urine Glucose (UA) Negative (NEGATIVE) 01/31/22 13:55 Urine Ketones Negative (NEGATIVE) 01/31/22 13:55 Urine Blood 1+ (NEGATIVE) 01/31/22 13:55 Urine Nitrite Negative (NEGATIVE) 01/31/22 13:55 Urine Bilirubin Negative (NEGATIVE) 01/31/22 13:55 Urine Urobilinogen Normal (NORMAL) 01/31/22 13:55 Ur Leukocyte Esterase Negative (NEGATIVE) 01/31/22 13:55 Urine RBC 0-2 /HPF (0-3) 01/31/22 13:55 Urine WBC 0-2 /HPF (0-5) 01/31/22 13:55 Ur Squamous Epith Cells Few /HPF (NEGATIVE) 01/31/22 13:55 Urine Bacteria Trace /HPF (NEGATIVE) 01/31/22 13:55 Ur Culture Indicated? No/not indicated 01/31/22 13:55 SARS-CoV-2 (PCR) Negative (NEGATIVE) 01/31/22 13:50 Labs acceptable. XRAY XRAY Interpreted by: Radiologist X-ray Results: CT abd/pelvis - + diverticulosis, no diverticulitis, no free air. EKG Rate: 59 [place]: Normal Rhythm: SB and PACs Block: None Hypertrophy: None ST: Normal Opioid Opioid Risk Tool Age (Mitchell box if 16-45): No History of Preadolescent Sexual Abuse: No Total: 0 Total Score Risk Category: Low Risk Copyright: Florencio CARRILLO predicting aberrant behaviors Discharge Plan Diagnosis Discharge Problem: Hypertensive urgency, Nausea vomiting and diarrhea Discharge Plan Patient Disposition: 09 ADMITTED INPATIENT Condition: Stable Orders to Discharge Patient Discharge Orders: Transfer (Routine); Ordered 01/31/22 Ordered By: Jamal Vazquez
[2022-01-31] MEDS ORDERED: ZOFRAN INJ 4 MG VIAL IVP ONE ×2 (12:29→13:49)
[2022-01-31] MEDS ORDERED: NS 500 ML IV 500 ML IV ONE ×2 (12:30→12:39)
[2022-01-31] MEDS ORDERED: ZOFRAN INJ 4 MG VIAL ONE ×2 (12:39→14:31)
[2022-01-31 12:53] LABS: BASOPHILS % (AUTO) 0.5 % (0.2-1.0); EOSINOPHILS % (AUTO) 0.3 % (0.9-2.9); HEMATOCRIT 38.5 % (36.0-47.0); HEMOGLOBIN 12.6 g/dL (12.0-16.0); LYMPHOCYTES # (AUTO) 1.9 X10^3/uL (1.3-2.9); LYMPHOCYTES % (AUTO) 34.5 % (21.0-51.0); MEAN CORPUSCULAR HEMOGLOBIN 27.4 pg (27.0-34.0); MEAN CORPUSCULAR HGB CONC 32.7 g/dL (33.0-35.0); MEAN CORPUSCULAR VOLUME 83.8 fL (80.0-100.0); MEAN PLATELET VOLUME 10.3 fL (7.4-11.0); MONOCYTES # (AUTO) 0.5 x10^3/uL (0.3-0.8); MONOCYTES % (AUTO) 8.4 % (0.0-13.0); NEUTROPHILS # (AUTO) 3.1 x10^3/uL (2.2-4.8); NEUTROPHILS % (AUTO) 56.3 % (42.0-75.0); RED BLOOD COUNT 4.59 X10^6/uL (3.5-5.4); RED CELL DISTRIBUTION WIDTH 15.7 % (11.6-16.5); WHITE BLOOD COUNT 5.5 X10^3/uL (3.6-10.0)
[2022-01-31 13:11] LABS: ALANINE AMINOTRANSFERASE 13 Units/L (12-78); ALKALINE PHOSPHATASE 103 Units/L (46-116); ASPARTATE AMINO TRANSFERASE 15 Units/L (15-37); BLOOD UREA NITROGEN 5 mg/dL (7-18); CALCIUM 8.5 mg/dL (8.5-10.1); CARBON DIOXIDE 29.2 mmol/L (21-32); CHLORIDE 105 mmol/L (98-107); COR CA(FOR HYPOALB) 9.3 mg/dL (8.5-10.1); CREATINE KINASE 71 Units/L (26-192); CREATININE 1.16 mg/dL (0.55-1.02); SODIUM 142 mmol/L (136-145); TOTAL PROTEIN 7.3 g/dL (6.4-8.2); eGFR NON BLACK RACES 49 (>60)
[2022-01-31] MEDS ORDERED: APRESOLINE INJ 20 MG VIAL IVP ONE (13:26)
[2022-01-31] MEDS ORDERED: APRESOLINE INJ 20 MG VIAL ONE (13:28)
[2022-01-31] MEDS ORDERED: PROTONIX INJ 40 MG VIAL IVP ONE (13:49)
[2022-01-31] MEDS ORDERED: NS 100 ML IV 100 ML ONE (13:54)
[2022-01-31 14:15] LABS: BILIRUBIN,URINE NEGATIVE (NEGATIVE); BLOOD/HEMOGLOBIN,URINE 1+ (NEGATIVE); GLUCOSE, URINE NEGATIVE (NEGATIVE); KETONES,URINE NEGATIVE (NEGATIVE); LEUKOCYTE ESTERASE ,URINE NEGATIVE (NEGATIVE); NITRITES,URINE NEGATIVE (NEGATIVE); PROTEIN,URINE 1+ (NEGATIVE); UROBILINOGEN,URINE NORMAL (NORMAL)
[2022-01-31 14:26] LABS: COLOR,URINE YELLOW (YELLOW)
[2022-01-31 14:27] LABS: APPEARANCE,URINE CLEAR (CLEAR)
[2022-01-31 14:28] LABS: BACTERIA,URINE TRACE /HPF (NEGATIVE); RBC,URINE 0-2 /HPF (0-3); SQUAMOUS EPITHELIAL CELL,UR FEW /HPF (NEGATIVE)
[2022-01-31] MEDS ORDERED: PROTONIX INJ 40 MG VIAL ONE (14:31)
--- NOTE | 2022-01-31 14:42 | RAD ---
HISTORYSOBSTUDYAP chestCOMPARISONChest CT 03/18/2020FINDINGSTransverse cardiac diameter normal with clear lungs symmetrically inflated. There is no mediastinal, hilar or pleural abnormality.IMPRESSIONNo acute chest findings.Electronically signed by: DONNA JOSEPH (Jan 31, 2022 14:40:43)
--- NOTE | 2022-01-31 14:48 | CT ---
HISTORYWeakness, SOB, diverticulitis - States shes been sick on her stomach since Tuesday. No vomiting, just diarrhea.STUDYABDOMEN/PELVIS WITH [id number]/11/2021.TECHNIQUEMultipl e axial images of the abdomen and pelvis were obtained from the lung bases to the pubic symphysis after the administration of IV contrast. Dose reduction techniques including Automated Exposure Control (AEC) and adjustment of mA and kV were utilized.FINDINGSThe lung bases are clear without effusion. The heart size is normal. The liver, gallbladder, pancreas, spleen, adrenal glands, and kidneys are normal. There is mild to moderate systemic atherosclerosis. The stomach, small bowel, appendix are normal. There is diverticulosis of the distal colon without diverticulitis. The urinary bladder is collapsed. The uterus has been removed. There is degeneration in the spine and hips.IMPRESSIONNo acute abnormality. Diverticulosis of the distal colon without diverticulitis.Electronically signed by: Olvin Monsalve (Jan 31, 2022 14:46:55)
[2022-01-31] MEDS ORDERED: MORPHINE SULFATE INJ 4 MG IVP ONE (14:50)
[2022-01-31] MEDS ORDERED: MORPHINE SULFATE INJ 4 MG ONE (14:51)
[2022-01-31] MEDS ORDERED: APRESOLINE INJ 20 MG VIAL IVP PRN (17:18)
[2022-01-31] MEDS ORDERED: ZOFRAN INJ 4 MG VIAL IVP PRN (17:18)
[2022-01-31] MEDS ORDERED: VENTOLIN or PROAIR HFA IN PRN (17:18)
[2022-01-31] MEDS ORDERED: PULMICORT NEB TX 0.5 MG NEB ONE (19:40)
[2022-01-31] MEDS ORDERED: DUONEB 0.5 MG/3 MG (3 mL) NEB ONE (19:40)
[2022-01-31] MEDS: APRESOLINE TAB 25 MG PO SCH (20:08)
[2022-01-31] MEDS: LOPRESSOR TAB 50 MG PO SCH (20:08)
[2022-01-31] MEDS: MORPHINE SULFATE INJ 4 MG IVP PRN (20:09)
[2022-01-31] MEDS: SNACK - Diabetic Appropriate PO SCH (20:30)
[2022-01-31] MEDS: PULMICORT NEB TX 0.5 MG NEB SCH (21:00)
[2022-01-31] MEDS: PROVENTIL NEB TX 0.083% 2.5MG/ 3ML NEB SCH (21:00)
[2022-01-31] MEDS ORDERED: COMBIGAN EYE DROPS OP SCH (21:00)
[2022-01-31] MEDS: AMBIEN PO SCH (21:58)
[2022-02-01 05:23] LABS: BASOPHILS % (AUTO) 0.5 % (0.2-1.0); EOSINOPHILS % (AUTO) 0.6 % (0.9-2.9); HEMATOCRIT 33.7 % (36.0-47.0); HEMOGLOBIN 11.1 g/dL (12.0-16.0); LYMPHOCYTES % (AUTO) 36.2 % (21.0-51.0); MEAN CORPUSCULAR HEMOGLOBIN 27.5 pg (27.0-34.0); MEAN CORPUSCULAR VOLUME 83.4 fL (80.0-100.0); MEAN PLATELET VOLUME 10.1 fL (7.4-11.0); MONOCYTES # (AUTO) 0.8 x10^3/uL (0.3-0.8); MONOCYTES % (AUTO) 14.1 % (0.0-13.0); NEUTROPHILS # (AUTO) 2.7 x10^3/uL (2.2-4.8); NEUTROPHILS % (AUTO) 48.6 % (42.0-75.0); RED BLOOD COUNT 4.04 X10^6/uL (3.5-5.4); RED CELL DISTRIBUTION WIDTH 16.2 % (11.6-16.5); WHITE BLOOD COUNT 5.6 X10^3/uL (3.6-10.0)
[2022-02-01 05:35] LABS: ALANINE AMINOTRANSFERASE 10 Units/L (12-78); ALBUMIN 2.6 g/dL (3.4-5.0); ALKALINE PHOSPHATASE 87 Units/L (46-116); ASPARTATE AMINO TRANSFERASE 12 Units/L (15-37); BLOOD UREA NITROGEN 6 mg/dL (7-18); CALCIUM 8.1 mg/dL (8.5-10.1); CARBON DIOXIDE 24.6 mmol/L (21-32); CHLORIDE 106 mmol/L (98-107); COR CA(FOR HYPOALB) 9.2 mg/dL (8.5-10.1); CREATININE 1.06 mg/dL (0.55-1.02); SODIUM 141 mmol/L (136-145); TOTAL PROTEIN 6.3 g/dL (6.4-8.2); eGFR NON BLACK RACES 54 (>60)
[2022-02-01] MEDS: CRESTOR TAB 10 MG PO SCH (08:33)
[2022-02-01] MEDS: AMARYL TAB 4 MG PO SCH (08:34)
[2022-02-01] MEDS: ASPIRIN EC 81 MG PO SCH (08:34)
[2022-02-01] MEDS: LOPRESSOR TAB 50 MG PO SCH ×2 (08:34→21:14)
[2022-02-01] MEDS: APRESOLINE TAB 25 MG PO SCH ×2 (08:34→21:13)
[2022-02-01] MEDS: SINGULAIR TAB 10 MG PO SCH (08:34)
[2022-02-01] MEDS: ALDACTONE TAB 25 MG PO SCH (08:34)
--- NOTE | 2022-02-01 09:17 | DR.H&P ---
H&P History & Physical for Day of: H&P Date: 02/01/22 Chief Complaint Chief Complaint: Weakness Abdominal pain, diarrhea, nausea Allergies Allergies Allergy/AdvReac Type Severity Reaction Status Date / Time No Known Drug Allergies Allergy Verified 05/12/17 07:26 History of Present Illness History of Present Illness: Pt is a 71 year old female past medical history of hypertension, COPD, DMT2, presenting with one week of nausea, vomiting, abdominal pain, and diarrhea. She reports that she has been so nauseous that she was unable to tolerate taking her medications. She began feeling shortness of breath and went to ED, which at the time noted significantly elevated blood pressure. Labs/imaging: Wbc 5.6, Hgb 11.1, Plt 223, Na 141, K 3.8, Creatinine 1.06, Glucose 102, UA negative, Troponin negative, COVID-19 negative, CXR: no acute cardiopulmonary findings, CTAP was obtained that revealed: No acute abnormality. Diverticulosis of the distal colon without diverticulitis. Pt was admitted for hypertensive urgency and started on IV hydralazine prn. Will restart home medications and monitor blood pressure. Order IVF and start on clear liquid diet. On exam patient with epigastric tenderness. Will get ultrasound of gallbladder for further evaluation. Order anti-emetics. She has not had loose bowel movement since admission for stool studies. Will continue to closely monitor and follow up labs/imaging. Past Medical History Past Medical History: Arthritis, Asthma, COPD, Diabetes, Hypertension and Renal Disease Past Surgical History Surgical History: Hysterectomy and Ortho Surgery Family History Family Medical History: Diabetes Mellitus, Cancer, [place], Coronary Artery Disease, Heart Failure, Sudden Cardiac and Hypertension Social History Does patient currently use any type of tobacco product: No Have you used tobacco products in the last 12 months: No Type of Tobacco Use: None Does any household member use tobacco: No Alcohol Use: None Drug Use: None Medications Home Medications: No Known Drug Allergies Allergy (Verified 05/12/17 07:26) CONTINUE taking the following medications apixaban 5 mg tablet (Eliquis) 1 tab PO BID 01/31/22 [History] aspirin 81 mg tablet 81 mg PO QDAY 01/31/22 [History] cyclosporine 0.05 % eye drops in a dropperette (Restasis) 1 drp ophthalmic (eye) BID 01/31/22 [History] diltiazem HCl 180 mg capsule,extended release 24 hr, controlled 180 mg PO DAILY 01/31/22 [History] hydrocodone 10 mg-acetaminophen 325 mg tablet 1 tab PO QID PRN 01/31/22 [History] latanoprost 0.005 % eye drops, emulsion 1 drp ophthalmic (eye) HS 01/31/22 [History] nitroglycerin 0.4 mg sublingual tablet 0.4 mg sublingual PRN PRN Chest Pain 01/31/22 [History] Labs Result Diagrams: 02/02/22 05:33 02/02/22 05:33 Labs: Laboratory WBC 5.6 X10^3/uL (3.6-10.0) 02/01/22 04:54 RBC 4.04 X10^6/uL (3.5-5.4) 02/01/22 04:54 Hgb 11.1 g/dL (12.0-16.0) L 02/01/22 04:54 Hct 33.7 % (36.0-47.0) L 02/01/22 04:54 MCV 83.4 fL (80.0-100.0) 02/01/22 04:54 MCH 27.5 pg (27.0-34.0) 02/01/22 04:54 MCHC 33.0 g/dL (33.0-35.0) 02/01/22 04:54 RDW 16.2 % (11.6-16.5) 02/01/22 04:54 Plt Count 223 X10^3/uL (150.0-450.0) 02/01/22 04:54 MPV 10.1 fL (7.4-11.0) 02/01/22 04:54 Neut % (Auto) 48.6 % (42.0-75.0) 02/01/22 04:54 Lymph % (Auto) 36.2 % (21.0-51.0) 02/01/22 04:54 [place] % (Auto) 14.1 % (0.0-13.0) H 02/01/22 04:54 Eos % (Auto) 0.6 % (0.9-2.9) L 02/01/22 04:54 Baso % (Auto) 0.5 % (0.2-1.0) 02/01/22 04:54 Neut # (Auto) 2.7 x10^3/uL (2.2-4.8) 02/01/22 04:54 Lymph # (Auto) 2.0 X10^3/uL (1.3-2.9) 02/01/22 04:54 [place] # (Auto) 0.8 x10^3/uL (0.3-0.8) 02/01/22 04:54 Eos # (Auto) 0.0 x10^3/uL (0.0-0.2) 02/01/22 04:54 Baso # (Auto) 0.0 X10^3/uL (0.0-0.1) 02/01/22 04:54 Absolute Nucleated RBC 0.1 /100WBC 02/01/22 04:54 Sodium 141 mmol/L (136-145) 02/01/22 04:54 Corrected Sodium TNP 02/01/22 04:54 Potassium 3.8 mmol/L (3.5-5.1) 02/01/22 04:54 Chloride 106 mmol/L (98-107) 02/01/22 04:54 Carbon Dioxide 24.6 mmol/L (21-32) 02/01/22 04:54 BUN 6 mg/dL (7-18) L 02/01/22 04:54 Creatinine 1.06 mg/dL (0.55-1.02) H 02/01/22 04:54 Est GFR (MDRD) Af Amer > 60 (>60) 02/01/22 04:54 Est GFR (MDRD) Non-Af 54 (>60) L 02/01/22 04:54 Glucose 102 mg/dL (65-99) H 02/01/22 04:54 POC Glucose (mg/dL) 104 mg/dL (65-99) H 02/01/22 05:41 Calcium 8.1 mg/dL (8.5-10.1) L 02/01/22 04:54 Corrected Calcium 9.2 mg/dL (8.5-10.1) 02/01/22 04:54 Total Bilirubin 0.30 mg/dL (0.2-1.0) 02/01/22 04:54 AST 12 Units/L (15-37) L 02/01/22 04:54 ALT 10 Units/L (12-78) L 02/01/22 04:54 Alkaline Phosphatase 87 Units/L (46-116) 02/01/22 04:54 Creatine Kinase 71 Units/L (26-192) 01/31/22 12:44 Troponin I High Sens 12.3 ng/L (4.0-60.0) 01/31/22 12:44 Total Protein 6.3 g/dL (6.4-8.2) L 02/01/22 04:54 Albumin 2.6 g/dL (3.4-5.0) L 02/01/22 04:54 Globulin 3.7 g/dL (2.5-4.5) 02/01/22 04:54 Albumin/Globulin Ratio 0.7 Ratio (1.1-2.1) L 02/01/22 04:54 Specimen Type Clean catch urine 01/31/22 13:55 Urine Color Yellow (YELLOW) 01/31/22 13:55 Urine Appearance Clear (CLEAR) 01/31/22 13:55 Urine pH 7.0 (5.0 - 8.0) 01/31/22 13:55 Ur Specific [place] 1.010 (1.000-1.030) 01/31/22 13:55 Urine Protein 1+ (NEGATIVE) 01/31/22 13:55 Urine Glucose (UA) Negative (NEGATIVE) 01/31/22 13:55 Urine Ketones Negative (NEGATIVE) 01/31/22 13:55 Urine Blood 1+ (NEGATIVE) 01/31/22 13:55 Urine Nitrite Negative (NEGATIVE) 01/31/22 13:55 Urine Bilirubin Negative (NEGATIVE) 01/31/22 13:55 Urine Urobilinogen Normal (NORMAL) 01/31/22 13:55 Ur Leukocyte Esterase Negative (NEGATIVE) 01/31/22 13:55 Urine RBC 0-2 /HPF (0-3) 01/31/22 13:55 Urine WBC 0-2 /HPF (0-5) 01/31/22 13:55 Ur Squamous Epith Cells Few /HPF (NEGATIVE) 01/31/22 13:55 Urine Bacteria Trace /HPF (NEGATIVE) 01/31/22 13:55 Ur Culture Indicated? No/not indicated 01/31/22 13:55 SARS-CoV-2 (PCR) Negative (NEGATIVE) 01/31/22 13:50 Review of Systems Constitutional: Weakness Eyes: No Symptoms Reported ENT: No Symptoms Reported Respiratory: Shortness of Breath Cardiovascular: No Symptoms Reported Gastrointestinal: Nausea, Abdominal Pain and Diarrhea Genitourinary: No Symptoms Reported Musculoskeletal: No Symptoms Reported Skin: No Symptoms Reported Neurological: No Symptoms Reported Physical Exam Vital Signs: Temperature 98.6 F Pulse Rate [Brachial] 77 Pulse Rate 76 Respiratory Rate 18 Blood Pressure [Right Arm] 120/60 Blood Pressure [Left Arm] 118/66 Blood Pressure 211/98 O2 Sat by Pulse Oximetry 96 Oriented: Normal Eyes: Normal Ear: Normal Nose: Normal Throat: Normal Respiratory: Clear Throughout Cardiovascular: Normal : Normal Auscultation: Bowel Sounds: Normal Palpation: Normal Tenderness: Epigastric Skin: Decreased [place] Musculoskeletal: Normal Psychiatric: Normal Mood Description: Calm and Appropriate Affect: Normal Speech Pattern: Clear and Appropriate Assessment/Plan (1) Hypertensive urgency: Status: Acute Plan: IV hydralazine prn Restart home anti-hypertensive medications Monitor BP (2) Nausea vomiting and diarrhea: Status: Acute Plan: IVF, clear liquid diet Will get ultrasound of gallbladder for further evaluation Review H&P Reviewed: Yes Patient was examined?: Yes
[2022-02-01] MEDS: LASIX PO SCH ×2 (09:19→17:46)
[2022-02-01] MEDS: ELIQUIS PO SCH ×2 (09:19→21:13)
[2022-02-01] MEDS: PULMICORT NEB TX 0.5 MG NEB SCH ×2 (09:24→21:00)
[2022-02-01] MEDS: PROVENTIL NEB TX 0.083% 2.5MG/ 3ML NEB SCH ×2 (09:24→21:00)
[2022-02-01 10:03] VITALS: BMI 44.6
[2022-02-01] MEDS: ALPHAGAN 0.2% OPHTH SOLN AFFEYE SCH ×2 (10:11→21:21)
[2022-02-01] MEDS: TIMOPTIC 0.5% EYE DROPS AFFEYE SCH ×2 (10:11→21:21)
[2022-02-01] MEDS: AMBIEN PO SCH (21:20)
[2022-02-01] MEDS: SNACK - Diabetic Appropriate PO SCH (21:21)
[2022-02-02] MEDS: LASIX PO SCH ×2 (06:03→17:28)
[2022-02-02 06:11] LABS: BASOPHILS % (AUTO) 0.7 % (0.2-1.0); EOSINOPHILS # (AUTO) 0.1 x10^3/uL (0.0-0.2); EOSINOPHILS % (AUTO) 1.2 % (0.9-2.9); HEMATOCRIT 37.3 % (36.0-47.0); HEMOGLOBIN 12.2 g/dL (12.0-16.0); LYMPHOCYTES # (AUTO) 2.3 X10^3/uL (1.3-2.9); MEAN CORPUSCULAR HEMOGLOBIN 27.4 pg (27.0-34.0); MEAN CORPUSCULAR HGB CONC 32.7 g/dL (33.0-35.0); MEAN CORPUSCULAR VOLUME 83.9 fL (80.0-100.0); MEAN PLATELET VOLUME 10.2 fL (7.4-11.0); MONOCYTES # (AUTO) 0.7 x10^3/uL (0.3-0.8); MONOCYTES % (AUTO) 11.4 % (0.0-13.0); NEUTROPHILS # (AUTO) 2.8 x10^3/uL (2.2-4.8); NEUTROPHILS % (AUTO) 47.7 % (42.0-75.0); RED BLOOD COUNT 4.44 X10^6/uL (3.5-5.4); RED CELL DISTRIBUTION WIDTH 16.4 % (11.6-16.5); WHITE BLOOD COUNT 5.8 X10^3/uL (3.6-10.0)
[2022-02-02 06:20] LABS: ALANINE AMINOTRANSFERASE 11 Units/L (12-78); ALBUMIN 2.8 g/dL (3.4-5.0); ALKALINE PHOSPHATASE 91 Units/L (46-116); ASPARTATE AMINO TRANSFERASE 15 Units/L (15-37); BLOOD UREA NITROGEN 6 mg/dL (7-18); CALCIUM 8.2 mg/dL (8.5-10.1); CARBON DIOXIDE 24.7 mmol/L (21-32); CHLORIDE 105 mmol/L (98-107); COR CA(FOR HYPOALB) 9.2 mg/dL (8.5-10.1); CREATININE 1.16 mg/dL (0.55-1.02); SODIUM 142 mmol/L (136-145); TOTAL PROTEIN 6.8 g/dL (6.4-8.2); eGFR NON BLACK RACES 49 (>60)
[2022-02-02] MEDS: SINGULAIR TAB 10 MG PO SCH (09:19)
[2022-02-02] MEDS: ALDACTONE TAB 25 MG PO SCH (09:19)
[2022-02-02] MEDS: LOPRESSOR TAB 50 MG PO SCH ×2 (09:19→20:20)
[2022-02-02] MEDS: ELIQUIS PO SCH ×2 (09:19→20:20)
[2022-02-02] MEDS: CRESTOR TAB 10 MG PO SCH (09:20)
[2022-02-02] MEDS: ASPIRIN EC 81 MG PO SCH (09:20)
[2022-02-02] MEDS: APRESOLINE TAB 25 MG PO SCH ×2 (09:20→20:20)
[2022-02-02] MEDS: AMARYL TAB 4 MG PO SCH (09:20)
[2022-02-02] MEDS: TIMOPTIC 0.5% EYE DROPS AFFEYE SCH ×2 (09:21→20:20)
[2022-02-02] MEDS: ALPHAGAN 0.2% OPHTH SOLN AFFEYE SCH ×2 (09:21→20:20)
[2022-02-02] MEDS: PULMICORT NEB TX 0.5 MG NEB SCH ×2 (09:45→21:00)
[2022-02-02] MEDS: PROVENTIL NEB TX 0.083% 2.5MG/ 3ML NEB SCH ×2 (09:45→21:00)
--- NOTE | 2022-02-02 10:37 | US ---
HISTORYHTN, NAUSEA/VOMITTINGSTUDYGALL BLADDERCOMPARISONNoneTECHNIQUESeventy-tw o images made by the e [employer] merchant. Dan scale and color-flow images of the right upper quadrant were obtained.FINDINGSThe liver has normal echogenicity and size. No mass or intrahepatic biliary duct dilatation is present. The intrahepatic inferior vena cava was imaged.The visualized hepatic veins are patent with blood flow toward the right atrium. The portal vein is patent with blood flow toward the liver. The hepatic artery was patent.The pancreas is not well identified due to overlying bowel gas.The gallbladder is normally distended with no stones, wall thickening, or pericholecystic fluid. No extrahepatic biliary duct dilatation; common duct is normal.The right kidney is normal in size and echogenicity. No hydronephrosis.IMPRESSION1. No significant abnormalityElectronically signed by: Ron Matthews (Feb 02, 2022 10:35:45)
--- NOTE | 2022-02-02 12:28 | PCM.PROG ---
Progress Note Progress Note for Day of Date of Exam: 02/02/22 Subjective Subjective: Pt is a 71 year old female past medical history of hypertension, COPD, DMT2, admitted for hypertensive urgency, abdominal pain, nausea, vomiting. This morning patient is resting in bed, no acute concerns overnight. Her blood pressure has been well controlled with oral medication. She reports some improvement in her nausea and pain. Denies any diarrhea. Tolerated clear liquid diet. Labs/imaging: Wbc 5.8, Hgb 12.2, Plt 214, Na 142, K 4.0, Creatinine 1.16, Glucose 82, CTAP was obtained that revealed: No acute abnormality. Diverticulosis of the distal colon without diverticulitis. U/S abdomen was obtained today and is negative for any acute findings. Will continue with IVF, IV hydralazine prn, anti-emetics, and monitor blood pressure. Advance diet. Will continue to closely monitor and follow up labs in the morning. Past Medical Family Social History Allergies: Allergies No Known Drug Allergies Allergy (Verified 05/12/17 07:26) Review of Systems ROS: Changes notes (describe) (improvement in abdominal pain and nausea) Vital Signs and I&O's Vital Signs: Temperature 98.7 F Pulse Rate [Brachial] 63 Pulse Rate 63 Respiratory Rate 18 Blood Pressure [Right Arm] 126/60 Blood Pressure [Left Arm] 118/66 Blood Pressure 211/98 O2 Sat by Pulse Oximetry 96 Intake and Output: Intake & Output 01/30/22 01/31/22 02/01/22 02/02/22 23:59 23:59 23:59 23:59 Intake Total 420 / 420 1320 / 1320 0 / 0 Balance 420 / 420 1320 / 1320 0 / 0 Physical Exam Oriented: Normal Eyes: Normal Ear: Normal Nose: Normal Throat: Normal Cardiovascular: Normal : Normal Auscultation: Bowel Sounds: Normal Palpation: Normal Tenderness: Epigastric Skin: Normal Musculoskeletal: Normal Psychiatric: Normal Mood Description: Calm and Appropriate Affect: Normal Speech Pattern: Clear and Appropriate Laboratory and Diagnostics Result Diagrams: 02/02/22 05:33 02/02/22 05:33 Labs: Laboratory WBC 5.8 X10^3/uL (3.6-10.0) 02/02/22 05:33 RBC 4.44 X10^6/uL (3.5-5.4) 02/02/22 05:33 Hgb 12.2 g/dL (12.0-16.0) 02/02/22 05:33 Hct 37.3 % (36.0-47.0) 02/02/22 05:33 MCV 83.9 fL (80.0-100.0) 02/02/22 05:33 MCH 27.4 pg (27.0-34.0) 02/02/22 05:33 MCHC 32.7 g/dL (33.0-35.0) L 02/02/22 05:33 RDW 16.4 % (11.6-16.5) 02/02/22 05:33 Plt Count 214 X10^3/uL (150.0-450.0) 02/02/22 05:33 MPV 10.2 fL (7.4-11.0) 02/02/22 05:33 Neut % (Auto) 47.7 % (42.0-75.0) 02/02/22 05:33 Lymph % (Auto) 39.0 % (21.0-51.0) 02/02/22 05:33 [place] % (Auto) 11.4 % (0.0-13.0) 02/02/22 05:33 Eos % (Auto) 1.2 % (0.9-2.9) 02/02/22 05:33 Baso % (Auto) 0.7 % (0.2-1.0) 02/02/22 05:33 Neut # (Auto) 2.8 x10^3/uL (2.2-4.8) 02/02/22 05:33 Lymph # (Auto) 2.3 X10^3/uL (1.3-2.9) 02/02/22 05:33 [place] # (Auto) 0.7 x10^3/uL (0.3-0.8) 02/02/22 05:33 Eos # (Auto) 0.1 x10^3/uL (0.0-0.2) 02/02/22 05:33 Baso # (Auto) 0.0 X10^3/uL (0.0-0.1) 02/02/22 05:33 Absolute Nucleated RBC 0.1 /100WBC 02/02/22 05:33 Sodium 142 mmol/L (136-145) 02/02/22 05:33 Corrected Sodium TNP 02/02/22 05:33 Potassium 4.0 mmol/L (3.5-5.1) 02/02/22 05:33 Chloride 105 mmol/L (98-107) 02/02/22 05:33 Carbon Dioxide 24.7 mmol/L (21-32) 02/02/22 05:33 BUN 6 mg/dL (7-18) L 02/02/22 05:33 Creatinine 1.16 mg/dL (0.55-1.02) H 02/02/22 05:33 Est GFR (MDRD) Af Amer 59 (>60) 02/02/22 05:33 Est GFR (MDRD) Non-Af 49 (>60) L 02/02/22 05:33 Glucose 82 mg/dL (65-99) 02/02/22 05:33 POC Glucose (mg/dL) 93 mg/dL (65-99) 02/02/22 11:11 Calcium 8.2 mg/dL (8.5-10.1) L 02/02/22 05:33 Corrected Calcium 9.2 mg/dL (8.5-10.1) 02/02/22 05:33 Total Bilirubin 0.30 mg/dL (0.2-1.0) 02/02/22 05:33 AST 15 Units/L (15-37) 02/02/22 05:33 ALT 11 Units/L (12-78) L 02/02/22 05:33 Alkaline Phosphatase 91 Units/L (46-116) 02/02/22 05:33 Creatine Kinase 71 Units/L (26-192) 01/31/22 12:44 Troponin I High Sens 12.3 ng/L (4.0-60.0) 01/31/22 12:44 Total Protein 6.8 g/dL (6.4-8.2) 02/02/22 05:33 Albumin 2.8 g/dL (3.4-5.0) L 02/02/22 05:33 Globulin 4.0 g/dL (2.5-4.5) 02/02/22 05:33 Albumin/Globulin Ratio 0.7 Ratio (1.1-2.1) L 02/02/22 05:33 Specimen Type Clean catch urine 01/31/22 13:55 Urine Color Yellow (YELLOW) 01/31/22 13:55 Urine Appearance Clear (CLEAR) 01/31/22 13:55 Urine pH 7.0 (5.0 - 8.0) 01/31/22 13:55 Ur Specific [place] 1.010 (1.000-1.030) 01/31/22 13:55 Urine Protein 1+ (NEGATIVE) 01/31/22 13:55 Urine Glucose (UA) Negative (NEGATIVE) 01/31/22 13:55 Urine Ketones Negative (NEGATIVE) 01/31/22 13:55 Urine Blood 1+ (NEGATIVE) 01/31/22 13:55 Urine Nitrite Negative (NEGATIVE) 01/31/22 13:55 Urine Bilirubin Negative (NEGATIVE) 01/31/22 13:55 Urine Urobilinogen Normal (NORMAL) 01/31/22 13:55 Ur Leukocyte Esterase Negative (NEGATIVE) 01/31/22 13:55 Urine RBC 0-2 /HPF (0-3) 01/31/22 13:55 Urine WBC 0-2 /HPF (0-5) 01/31/22 13:55 Ur Squamous Epith Cells Few /HPF (NEGATIVE) 01/31/22 13:55 Urine Bacteria Trace /HPF (NEGATIVE) 01/31/22 13:55 Ur Culture Indicated? No/not indicated 01/31/22 13:55 SARS-CoV-2 (PCR) Negative (NEGATIVE) 01/31/22 13:50 Plan (1) Hypertensive urgency: Status: Acute Plan: IV hydralazine prn Continue home anti-hypertensive medications Monitor BP (2) Nausea vomiting and diarrhea: Status: Acute Plan: IVF, clear liquid diet>advance diet Ultrasound of gallbladder negative CTAP negative for acute findings
[2022-02-02] MEDS: SNACK - Diabetic Appropriate PO SCH (20:20)
[2022-02-02] MEDS: MORPHINE SULFATE INJ 4 MG IVP PRN (20:20)
[2022-02-02] MEDS: AMBIEN PO SCH (20:20)
[2022-02-03 06:04] LABS: BASOPHILS % (AUTO) 0.7 % (0.2-1.0); EOSINOPHILS # (AUTO) 0.1 x10^3/uL (0.0-0.2); EOSINOPHILS % (AUTO) 0.9 % (0.9-2.9); HEMATOCRIT 35.2 % (36.0-47.0); HEMOGLOBIN 11.6 g/dL (12.0-16.0); LYMPHOCYTES # (AUTO) 2.3 X10^3/uL (1.3-2.9); LYMPHOCYTES % (AUTO) 39.8 % (21.0-51.0); MEAN CORPUSCULAR HEMOGLOBIN 27.9 pg (27.0-34.0); MEAN CORPUSCULAR VOLUME 84.7 fL (80.0-100.0); MEAN PLATELET VOLUME 10.1 fL (7.4-11.0); MONOCYTES # (AUTO) 0.8 x10^3/uL (0.3-0.8); MONOCYTES % (AUTO) 13.5 % (0.0-13.0); NEUTROPHILS # (AUTO) 2.6 x10^3/uL (2.2-4.8); NEUTROPHILS % (AUTO) 45.1 % (42.0-75.0); RED BLOOD COUNT 4.16 X10^6/uL (3.5-5.4); RED CELL DISTRIBUTION WIDTH 16.1 % (11.6-16.5); WHITE BLOOD COUNT 5.7 X10^3/uL (3.6-10.0)
[2022-02-03 06:39] LABS: ALANINE AMINOTRANSFERASE 13 Units/L (12-78); ALBUMIN 2.6 g/dL (3.4-5.0); ALKALINE PHOSPHATASE 86 Units/L (46-116); BLOOD UREA NITROGEN 9 mg/dL (7-18); CARBON DIOXIDE 25.9 mmol/L (21-32); CHLORIDE 104 mmol/L (98-107); COR CA(FOR HYPOALB) 9.1 mg/dL (8.5-10.1); CREATININE 1.18 mg/dL (0.55-1.02); SODIUM 141 mmol/L (136-145); TOTAL PROTEIN 6.6 g/dL (6.4-8.2); eGFR NON BLACK RACES 48 (>60)
[2022-02-03 06:51] LABS: ASPARTATE AMINO TRANSFERASE 19 Units/L (15-37)
[2022-02-03] MEDS: LASIX PO SCH (07:51)
[2022-02-03] MEDS: PROVENTIL NEB TX 0.083% 2.5MG/ 3ML NEB SCH (09:00)
[2022-02-03] MEDS: PULMICORT NEB TX 0.5 MG NEB SCH (09:00)
[2022-02-03] MEDS: ASPIRIN EC 81 MG PO SCH (09:20)
[2022-02-03] MEDS: AMARYL TAB 4 MG PO SCH (09:20)
[2022-02-03] MEDS: APRESOLINE TAB 25 MG PO SCH (09:20)
[2022-02-03] MEDS: ALDACTONE TAB 25 MG PO SCH (09:21)
[2022-02-03] MEDS: LOPRESSOR TAB 50 MG PO SCH (09:21)
[2022-02-03] MEDS: SINGULAIR TAB 10 MG PO SCH (09:21)
[2022-02-03] MEDS: CRESTOR TAB 10 MG PO SCH (09:22)
[2022-02-03] MEDS: ELIQUIS PO SCH (09:22)
[2022-02-03] MEDS: TIMOPTIC 0.5% EYE DROPS AFFEYE SCH (09:22)
[2022-02-03] MEDS: ALPHAGAN 0.2% OPHTH SOLN AFFEYE SCH (09:22)
[2022-02-03 09:31] VITALS: BP 159/68
--- NOTE | 2022-02-03 10:06 | W.DIS.FURT ---
Summary of Discharge Admission Diagnosis Patient Problems (Updated 01/31/22 @ 17:12 by Rosanne Bundy) Hypertensive urgency (Acute) I16.0 Nausea vomiting and diarrhea (Acute) R11.2, R19.7 Vital Signs: Vital Signs (72 hours) 01/31/22 11:53 01/31/22 12:19 01/31/22 12:20 Temperature 98.0 F Pulse Rate 63 Pulse Rate [Brachial] Respiratory Rate 18 Blood Pressure 157/87 209/88 Blood Pressure [Right Arm] O2 Sat by Pulse Oximetry 100 98 Oxygen Delivery Method Room Air FIO2% 01/31/22 12:20 01/31/22 12:30 01/31/22 12:30 Temperature Pulse Rate 63 65 Pulse Rate [Brachial] Respiratory Rate Blood Pressure 178/78 Blood Pressure [Right Arm] O2 Sat by Pulse Oximetry 97 99 Oxygen Delivery Method FIO2% 01/31/22 12:49 01/31/22 12:54 01/31/22 12:54 Temperature Pulse Rate 69 Pulse Rate [Brachial] Respiratory Rate Blood Pressure 187/94 Blood Pressure [Right Arm] O2 Sat by Pulse Oximetry 100 100 Oxygen Delivery Method FIO2% 01/31/22 13:00 01/31/22 13:02 01/31/22 13:02 Temperature Pulse Rate 71 63 Pulse Rate [Brachial] Respiratory Rate 25 H 24 Blood Pressure 184/141 Blood Pressure [Right Arm] O2 Sat by Pulse Oximetry 100 100 Oxygen Delivery Method FIO2% 01/31/22 13:15 01/31/22 13:16 01/31/22 13:16 Temperature Pulse Rate 64 63 Pulse Rate [Brachial] Respiratory Rate 33 H 28 H Blood Pressure 193/111 Blood Pressure [Right Arm] O2 Sat by Pulse Oximetry 100 100 Oxygen Delivery Method FIO2% 01/31/22 13:26 01/31/22 13:26 01/31/22 13:30 Temperature Pulse Rate 62 63 Pulse Rate [Brachial] Respiratory Rate 28 H 25 H Blood Pressure 192/86 Blood Pressure [Right Arm] O2 Sat by Pulse Oximetry 100 100 Oxygen Delivery Method FIO2% 01/31/22 13:31 01/31/22 13:31 01/31/22 13:32 Temperature Pulse Rate 62 Pulse Rate [Brachial] Respiratory Rate 19 Blood Pressure 200/86 180/77 Blood Pressure [Right Arm] O2 Sat by Pulse Oximetry 100 Oxygen Delivery Method FIO2% 01/31/22 13:32 01/31/22 13:35 01/31/22 13:35 Temperature Pulse Rate 62 69 Pulse Rate [Brachial] Respiratory Rate 24 26 H Blood Pressure 179/81 Blood Pressure [Right Arm] O2 Sat by Pulse Oximetry 100 100 Oxygen Delivery Method FIO2% 01/31/22 13:40 01/31/22 13:40 01/31/22 13:45 Temperature Pulse Rate 76 Pulse Rate [Brachial] Respiratory Rate 20 Blood Pressure 204/83 170/81 Blood Pressure [Right Arm] O2 Sat by Pulse Oximetry 100 Oxygen Delivery Method FIO2% 01/31/22 13:45 01/31/22 13:50 01/31/22 13:50 Temperature Pulse Rate 74 76 Pulse Rate [Brachial] Respiratory Rate 18 23 Blood Pressure 186/86 Blood Pressure [Right Arm] O2 Sat by Pulse Oximetry 100 100 Oxygen Delivery Method FIO2% 01/31/22 14:18 01/31/22 14:30 01/31/22 14:42 Temperature Pulse Rate 91 H 76 84 Pulse Rate [Brachial] Respiratory Rate 22 21 Blood Pressure Blood Pressure [Right Arm] O2 Sat by Pulse Oximetry 99 99 99 Oxygen Delivery Method FIO2% 01/31/22 14:42 01/31/22 14:55 01/31/22 14:45 Temperature Pulse Rate Pulse Rate [Brachial] Respiratory Rate 18 Blood Pressure 196/98 222/98 Blood Pressure [Right Arm] O2 Sat by Pulse Oximetry Oxygen Delivery Method FIO2% 01/31/22 14:45 01/31/22 14:51 01/31/22 14:51 Temperature Pulse Rate 79 89 Pulse Rate [Brachial] Respiratory Rate 24 17 Blood Pressure 201/83 Blood Pressure [Right Arm] O2 Sat by Pulse Oximetry 99 99 Oxygen Delivery Method FIO2% 01/31/22 14:56 01/31/22 14:56 01/31/22 15:00 Temperature Pulse Rate 76 Pulse Rate [Brachial] Respiratory Rate 19 Blood Pressure 166/77 189/91 Blood Pressure [Right Arm] O2 Sat by Pulse Oximetry 99 Oxygen Delivery Method FIO2% 01/31/22 15:00 01/31/22 15:05 01/31/22 15:05 Temperature Pulse Rate 78 73 Pulse Rate [Brachial] Respiratory Rate 24 21 Blood Pressure 180/99 Blood Pressure [Right Arm] O2 Sat by Pulse Oximetry 99 99 Oxygen Delivery Method FIO2% 01/31/22 15:10 01/31/22 15:10 01/31/22 15:15 Temperature Pulse Rate 68 Pulse Rate [Brachial] Respiratory Rate 21 Blood Pressure 176/85 186/82 Blood Pressure [Right Arm] O2 Sat by Pulse Oximetry 99 Oxygen Delivery Method FIO2% 01/31/22 15:15 01/31/22 15:20 01/31/22 15:20 Temperature Pulse Rate 71 71 Pulse Rate [Brachial] Respiratory Rate 22 19 Blood Pressure 176/88 Blood Pressure [Right Arm] O2 Sat by Pulse Oximetry 99 100 Oxygen Delivery Method FIO2% 01/31/22 15:25 01/31/22 15:25 01/31/22 15:30 Temperature Pulse Rate 70 Pulse Rate [Brachial] Respiratory Rate 20 Blood Pressure 178/84 188/88 Blood Pressure [Right Arm] O2 Sat by Pulse Oximetry 99 Oxygen Delivery Method FIO2% 01/31/22 15:30 01/31/22 15:35 01/31/22 15:35 Temperature Pulse Rate 64 72 Pulse Rate [Brachial] Respiratory Rate 20 25 H Blood Pressure 207/100 Blood Pressure [Right Arm] O2 Sat by Pulse Oximetry 99 99 Oxygen Delivery Method FIO2% 01/31/22 15:39 01/31/22 15:39 01/31/22 16:52 Temperature Pulse Rate 70 Pulse Rate [Brachial] Respiratory Rate 24 Blood Pressure 185/84 Blood Pressure [Right Arm] O2 Sat by Pulse Oximetry 100 Oxygen Delivery Method Room Air FIO2% 01/31/22 16:12 01/31/22 16:13 01/31/22 16:13 Temperature Pulse Rate 72 70 Pulse Rate [Brachial] Respiratory Rate 15 19 Blood Pressure 182/101 Blood Pressure [Right Arm] O2 Sat by Pulse Oximetry 99 99 Oxygen Delivery Method FIO2% 01/31/22 16:15 01/31/22 16:20 01/31/22 16:20 Temperature Pulse Rate 68 72 Pulse Rate [Brachial] Respiratory Rate 21 25 H Blood Pressure 192/92 Blood Pressure [Right Arm] O2 Sat by Pulse Oximetry 99 98 Oxygen Delivery Method FIO2% 01/31/22 16:30 01/31/22 16:31 01/31/22 16:31 Temperature Pulse Rate 81 71 Pulse Rate [Brachial] Respiratory Rate 27 H 26 H Blood Pressure 217/87 Blood Pressure [Right Arm] O2 Sat by Pulse Oximetry 99 99 Oxygen Delivery Method FIO2% 01/31/22 16:41 01/31/22 16:41 01/31/22 16:45 Temperature Pulse Rate 71 76 Pulse Rate [Brachial] Respiratory Rate 29 H 23 Blood Pressure 203/96 Blood Pressure [Right Arm] O2 Sat by Pulse Oximetry 98 99 Oxygen Delivery Method FIO2% 01/31/22 16:51 01/31/22 16:51 01/31/22 17:00 Temperature Pulse Rate 74 72 Pulse Rate [Brachial] Respiratory Rate 20 22 Blood Pressure 201/87 Blood Pressure [Right Arm] O2 Sat by Pulse Oximetry 98 98 Oxygen Delivery Method FIO2% 01/31/22 17:01 01/31/22 17:15 01/31/22 19:37 Temperature 98.8 F 98.2 F Pulse Rate Pulse Rate [Brachial] 86 71 Respiratory Rate 20 19 Blood Pressure 211/98 Blood Pressure [Right Arm] 189/92 140/65 O2 Sat by Pulse Oximetry 98 98 Oxygen Delivery Method Room Air Room Air FIO2% 01/31/22 20:09 01/31/22 20:00 01/31/22 19:00 Temperature 98.2 F Pulse Rate Pulse Rate [Brachial] 71 Respiratory Rate 18 19 Blood Pressure Blood Pressure [Right Arm] 140/65 O2 Sat by Pulse Oximetry 98 Oxygen Delivery Method Room Air Room Air FIO2% 01/31/22 21:00 01/31/22 21:00 01/31/22 20:39 Temperature Pulse Rate 76 Pulse Rate [Brachial] Respiratory Rate 18 Blood Pressure Blood Pressure [Right Arm] O2 Sat by Pulse Oximetry 93 L Oxygen Delivery Method Room Air FIO2% 01/31/22 23:36 02/01/22 04:00 02/01/22 07:00 Temperature 97.8 F 98.6 F Pulse Rate Pulse Rate [Brachial] 63 72 Respiratory Rate 20 18 Blood Pressure Blood Pressure [Right Arm] 127/59 116/54 O2 Sat by Pulse Oximetry 98 98 Oxygen Delivery Method Room Air Room Air Room Air FIO2% 02/01/22 08:00 02/01/22 09:25 02/01/22 09:25 Temperature 98.6 F Pulse Rate 63 Pulse Rate [Brachial] 77 Respiratory Rate 18 Blood Pressure Blood Pressure [Right Arm] 120/60 O2 Sat by Pulse Oximetry 96 97 Oxygen Delivery Method Room Air Room Air FIO2% 02/01/22 12:00 02/01/22 16:00 02/01/22 19:00 Temperature 98.4 F 99.1 F Pulse Rate Pulse Rate [Brachial] 59 L 76 Respiratory Rate 18 18 Blood Pressure Blood Pressure [Right Arm] 129/68 120/66 O2 Sat by Pulse Oximetry 96 96 Oxygen Delivery Method Room Air Room Air Room Air FIO2% 02/01/22 20:00 02/01/22 22:55 02/01/22 21:00 Temperature 98.5 F Pulse Rate 63 Pulse Rate [Brachial] 66 Respiratory Rate 21 Blood Pressure Blood Pressure [Right Arm] 157/70 O2 Sat by Pulse Oximetry 98 97 Oxygen Delivery Method Room Air Room Air FIO2% 02/02/22 00:00 02/02/22 04:00 02/02/22 07:00 Temperature 98.4 F 98.9 F Pulse Rate Pulse Rate [Brachial] 70 69 Respiratory Rate 22 20 Blood Pressure Blood Pressure [Right Arm] 125/58 140/62 O2 Sat by Pulse Oximetry 98 96 Oxygen Delivery Method Room Air Room Air Room Air FIO2% 02/02/22 08:00 02/02/22 09:45 02/02/22 09:45 Temperature 98.7 F Pulse Rate Pulse Rate [Brachial] 63 Respiratory Rate 18 Blood Pressure Blood Pressure [Right Arm] 126/60 O2 Sat by Pulse Oximetry 96 96 Oxygen Delivery Method Room Air Room Air FIO2% 02/02/22 12:00 02/02/22 16:00 02/02/22 19:00 Temperature 98.6 F 98.8 F Pulse Rate Pulse Rate [Brachial] 54 L 59 L Respiratory Rate 20 18 Blood Pressure Blood Pressure [Right Arm] 118/60 107/52 O2 Sat by Pulse Oximetry 94 L 98 Oxygen Delivery Method Room Air Room Air Room Air FIO2% 02/02/22 20:20 02/02/22 21:00 02/02/22 21:00 Temperature Pulse Rate 60 Pulse Rate [Brachial] Respiratory Rate 18 Blood Pressure Blood Pressure [Right Arm] O2 Sat by Pulse Oximetry 96 Oxygen Delivery Method Room Air FIO2% 21 02/02/22 20:00 02/03/22 00:00 02/02/22 20:50 Temperature 98.4 F 98.7 F Pulse Rate Pulse Rate [Brachial] 65 62 Respiratory Rate 18 18 18 Blood Pressure Blood Pressure [Right Arm] 120/56 119/51 O2 Sat by Pulse Oximetry 97 96 Oxygen Delivery Method Room Air Room Air FIO2% 02/03/22 04:00 02/03/22 09:18 02/03/22 09:18 Temperature 98.9 F Pulse Rate 78 Pulse Rate [Brachial] 89 Respiratory Rate 20 Blood Pressure Blood Pressure [Right Arm] 137/64 O2 Sat by Pulse Oximetry 98 97 Oxygen Delivery Method Room Air Room Air FIO2% 02/03/22 08:00 Temperature 98.2 F Pulse Rate Pulse Rate [Brachial] 78 Respiratory Rate 20 Blood Pressure Blood Pressure [Right Arm] 159/68 O2 Sat by Pulse Oximetry 99 Oxygen Delivery Method Room Air FIO2% Labs: Laboratory Last Values WBC 5.7 X10^3/uL (3.6-10.0) 02/03/22 05:30 RBC 4.16 X10^6/uL (3.5-5.4) 02/03/22 05:30 Hgb 11.6 g/dL (12.0-16.0) L 02/03/22 05:30 Hct 35.2 % (36.0-47.0) L 02/03/22 05:30 MCV 84.7 fL (80.0-100.0) 02/03/22 05:30 MCH 27.9 pg (27.0-34.0) 02/03/22 05:30 MCHC 33.0 g/dL (33.0-35.0) 02/03/22 05:30 RDW 16.1 % (11.6-16.5) 02/03/22 05:30 Plt Count 210 X10^3/uL (150.0-450.0) 02/03/22 05:30 MPV 10.1 fL (7.4-11.0) 02/03/22 05:30 Neut % (Auto) 45.1 % (42.0-75.0) 02/03/22 05:30 Lymph % (Auto) 39.8 % (21.0-51.0) 02/03/22 05:30 Vance % (Auto) 13.5 % (0.0-13.0) H 02/03/22 05:30 Eos % (Auto) 0.9 % (0.9-2.9) 02/03/22 05:30 Baso % (Auto) 0.7 % (0.2-1.0) 02/03/22 05:30 Neut # (Auto) 2.6 x10^3/uL (2.2-4.8) 02/03/22 05:30 Lymph # (Auto) 2.3 X10^3/uL (1.3-2.9) 02/03/22 05:30 Vance # (Auto) 0.8 x10^3/uL (0.3-0.8) 02/03/22 05:30 Eos # (Auto) 0.1 x10^3/uL (0.0-0.2) 02/03/22 05:30 Baso # (Auto) 0.0 X10^3/uL (0.0-0.1) 02/03/22 05:30 Absolute Nucleated RBC 0.1 /100WBC 02/03/22 05:30 Sodium 141 mmol/L (136-145) 02/03/22 05:30 Corrected Sodium TNP 02/03/22 05:30 Potassium 3.7 mmol/L (3.5-5.1) 02/03/22 05:30 Chloride 104 mmol/L (98-107) 02/03/22 05:30 Carbon Dioxide 25.9 mmol/L (21-32) 02/03/22 05:30 BUN 9 mg/dL (7-18) 02/03/22 05:30 Creatinine 1.18 mg/dL (0.55-1.02) H 02/03/22 05:30 Est GFR (MDRD) Af Amer 58 (>60) L 02/03/22 05:30 Est GFR (MDRD) Non-Af 48 (>60) L 02/03/22 05:30 Glucose 82 mg/dL (65-99) 02/03/22 05:30 POC Glucose (mg/dL) 88 mg/dL (65-99) 02/03/22 05:30 Calcium 8.0 mg/dL (8.5-10.1) L 02/03/22 05:30 Corrected Calcium 9.1 mg/dL (8.5-10.1) 02/03/22 05:30 Total Bilirubin 0.30 mg/dL (0.2-1.0) 02/03/22 05:30 AST 19 Units/L (15-37) 02/03/22 05:30 ALT 13 Units/L (12-78) 02/03/22 05:30 Alkaline Phosphatase 86 Units/L (46-116) 02/03/22 05:30 Creatine Kinase 71 Units/L (26-192) 01/31/22 12:44 Troponin I High Sens 12.3 ng/L (4.0-60.0) 01/31/22 12:44 Total Protein 6.6 g/dL (6.4-8.2) 02/03/22 05:30 Albumin 2.6 g/dL (3.4-5.0) L 02/03/22 05:30 Globulin 4.0 g/dL (2.5-4.5) 02/03/22 05:30 Albumin/Globulin Ratio 0.7 Ratio (1.1-2.1) L 02/03/22 05:30 Specimen Type Clean catch urine 01/31/22 13:55 Urine Color Yellow (YELLOW) 01/31/22 13:55 Urine Appearance Clear (CLEAR) 01/31/22 13:55 Urine pH 7.0 (5.0 - 8.0) 01/31/22 13:55 Ur Specific [place] 1.010 (1.000-1.030) 01/31/22 13:55 Urine Protein 1+ (NEGATIVE) 01/31/22 13:55 Urine Glucose (UA) Negative (NEGATIVE) 01/31/22 13:55 Urine Ketones Negative (NEGATIVE) 01/31/22 13:55 Urine Blood 1+ (NEGATIVE) 01/31/22 13:55 Urine Nitrite Negative (NEGATIVE) 01/31/22 13:55 Urine Bilirubin Negative (NEGATIVE) 01/31/22 13:55 Urine Urobilinogen Normal (NORMAL) 01/31/22 13:55 Ur Leukocyte Esterase Negative (NEGATIVE) 01/31/22 13:55 Urine RBC 0-2 /HPF (0-3) 01/31/22 13:55 Urine WBC 0-2 /HPF (0-5) 01/31/22 13:55 Ur Squamous Epith Cells Few /HPF (NEGATIVE) 01/31/22 13:55 Urine Bacteria Trace /HPF (NEGATIVE) 01/31/22 13:55 Ur Culture Indicated? No/not indicated 01/31/22 13:55 SARS-CoV-2 (PCR) Negative (NEGATIVE) 01/31/22 13:50 Reason For Visit: HYPERTENSIVE URGENCY, NAUSEA AND VOMITING Discharge Diagnosis All Active Problems (Updated 08/21/22 @ 17:12 by Rosanne Bundy) Back strain of thoracic region (Active) Acute GI bleeding (Acute) Hypertensive urgency (Acute) Nausea vomiting and diarrhea (Acute) Plan of Treatment: Continue with present treatment and follow up plan. Pt is to keep follow up appointment as instructed and take medications as ordered. Discharge Medications Discharge Medications: No Known Drug Allergies Allergy (Verified 05/12/17 07:26) CONTINUE taking the following medications apixaban 5 mg tablet (Eliquis) 1 tab PO BID 01/31/22 [History] aspirin 81 mg tablet 81 mg PO QDAY 01/31/22 [History] cyclosporine 0.05 % eye drops in a dropperette (Restasis) 1 drp ophthalmic (eye) BID 01/31/22 [History] diltiazem HCl 180 mg capsule,extended release 24 hr, controlled 180 mg PO DAILY 01/31/22 [History] hydrocodone 10 mg-acetaminophen 325 mg tablet 1 tab PO QID PRN 01/31/22 [History] latanoprost 0.005 % eye drops, emulsion 1 drp ophthalmic (eye) HS 01/31/22 [History] nitroglycerin 0.4 mg sublingual tablet 0.4 mg sublingual PRN PRN Chest Pain 01/31/22 [History] Discharge Plan Discharge Plan Patient Disposition: 01 HOME, SELF-CARE Condition: Stable Health Concerns: Post Hospitalization: new medications and changes needed to prevent readmission or further decline. Pt educated and given instructions on all concerns. Care Plan Goals: Problem: Cardiac Complications Goal: Early Recognition of cardiac complications for prompt intervention Instructions: Follow provided instructions. Follow up with primary physician as directed. Contact primary care physician or report to the closest Emergency Room if condition worsens. Plan of Treatment: Continue with present treatment and follow up plan. Pt is to keep follow up appointment as instructed and take medications as ordered. Prescriptions: Continued spironolactone 25 MG tablet 50 mg PO DAILY glimepiride [Amaryl] 2 MG tablet 2 mg PO DAILY metoprolol tartrate 50 MG tablet 50 mg PO BID gabapentin 300 MG capsule 600 mg PO TID montelukast [Singulair] 10 MG tablet 10 mg PO DAILY zolpidem 5 MG tablet 10 mg PO DAILY rosuvastatin [Crestor] 10 MG tablet 20 mg PO DAILY aspirin 81 mg Tablet 81 mg PO QDAY hydrocodone-acetaminophen 10-325 mg Tablet 1 tab PO QID PRN nitroglycerin 0.4 mg Tablet, Sublingual 0.4 mg sublingual PRN PRN (Reason: Chest Pain) diltiazem HCl 180 mg Capsule,Ext.Rel 24h Degradable 180 mg PO DAILY cyclosporine [Restasis] 0.05 % Dropperette 1 drp OPHTHALMIC (EYE) BID Eliquis 5 mg tablet 1 tab PO BID latanoprost 0.005 % Drops, Emulsion 1 drp OPHTHALMIC (EYE) HS pantoprazole 40 mg Tablet,Delayed Release (Dr/Ec) 40 mg PO BID hydralazine 50 mg Tablet 100 mg PO BID furosemide 20 mg Tablet 20 mg PO BID loperamide 2 mg Capsule 2 mg PO TID PRN magnesium 250 mg Tablet 250 mg PO QHS albuterol sulfate [ProAir HFA] 90 mcg/actuation Hfa Aerosol Inhaler 2 puff INHALATION BID PRN ondansetron 4 mg Tablet,Disintegrating 4 mg PO Q8H PRN dicyclomine 10 mg Capsule 10 mg PO TID budesonide-formoterol [Symbicort] 160-4.5 mcg/actuation Hfa Aerosol Inhaler 1 puff INHALATION DAILY brimonidine-timolol [Combigan] 0.2-0.5 % Drops 1 drp OPHTHALMIC (EYE) BID Rx Instructions: Both eyes Multaq 400 mg Tablet 400 mg PO BID Orders to Discharge Patient Discharge Orders: Discharge (Routine); Ordered 02/03/22 Ordered By: Jignesh Schaffer Follow ups/Referrals Follow ups/Referrals: Jignesh Schaffer [Primary Care Provider] - 3 days Instructions Instructions: Stroke Prevention, Chronic Obstructive Pulmonary Disease, Thys-ra-[id number], Food Choices to Help Relieve Diarrhea, Adult, Nausea and Vomiting, Adult, [id number], Type 2 Diabetes Mellitus, Self-Care, Adult, Xaac-[id number], Hypertension, Adult, [id number], Preventing Hypertension, Diarrhea, Adult, Vcrp-[id number] Stand Alone Forms: Precautions for COVID, [facility], Patient Portal, Social Distancing Patient Education Addl Reference Links: Managing Your Hypertension [id number]&sea rchtype=[email or web address] &maxresults=10&language=en&patientPerson.administrativeGenderCode.c=F&patientPer son.administrativeGenderCode.dn=Female&age.v.v=71&age.v.u=a&performer=PROV&infor mationRecipient=PAT&performer.languageCo de.c=en&mainSearchCriteria.v.l=[id number]&mainSearchCriteria.v.cs=[id number] 83.6.96&mainSearchCriteria.v.dn=Hypertensive%2burgency&mainSearchCriteria.v.c1=1 87&mainSearchCriteria.v.dn1=Hypertensive %2burgency&mainSearchCriteria.v.q8=817.9&mainSearchCriteria.v.cs2=[id number]&mainSearchCriteria.v.dn2=Hypertensive%2burgency&mainSearchCriteria.v.c 3=I16.0&mainSearchCriteria.v.cs3=2.16.84 [id number]&mainSearchCriteria.v.dn3=Hypertensive%2burgency&m=[id number]- [id number]
== END 2022-02-03 14:25 | disposition home or self-care (01) ==
LOC: MED/SURG 11:50 → ER 11:50 → MED/SURG 17:12
PROVIDERS: ADMIT Obstetrics & Gynecology Obstetrics; ATTEND Family Medicine
DX: J44.9 Chronic obstructive pulmonary disease, unspecified; I10 Essential (primary) hypertension; E11.65 Type 2 diabetes mellitus with hyperglycemia; K57.30 Diverticulosis of large intestine without perforation or abscess without bleeding; R06.02 Shortness of breath; Z20.822 Contact with and (suspected) exposure to COVID-19; R11.2 Nausea with vomiting, unspecified; I16.0 Hypertensive urgency